=== PATIENT | female | born 1985 | race Caucasian/White ===

== ENCOUNTER → 2017-06-24 09:37 | Outpatient (CLI) | payer MEDICAID, SELFPAY ==
[2017-06-24 12:32] LABS: Absolute Lymphocyte Count 1.23 X10^3/ul (0.83-4.51); Absolute Neutrophil Count 4.6 X10^3/uL (2.0-7.7); Basophil# 0.05 X10^3/uL; Basophil% 0.7 % (0-1); Eosinophil# 0.08 X10^3/uL; Eosinophils% 1.2 % (0-5); Hematocrit 44.1 % (37-47); Hemoglobin 14.7 g/dl (12.0-15.0); Lymphocyte # 1.23 X10^3/ul (4.0); Lymphocyte % 18.3 % (19-41); Mean Corp Hgb Conc 33.3 g/gl (32-36); Mean Corpuscular Hgb 30.4 pg (27.0-32.0); Mean Corpuscular Volume 91.3 fL (81-99); Mean Platelet Vol. 10.1 fl (6.2-12.0); Monocyte# 0.72 X10^3/uL; Monocyte% 10.7 % (0-10); Neutrophil # 4.63 X10^3/uL (2.7-7.7); Platelet Count 331 K/mm3 (150-450); RBC Distribution Width CV 13.1 % (11.6-14.6); RBC Distribution Width SD 43.5 fl (35.1-43.9); Red Blood Count 4.83 M/mm3 (4.2-5.4); White Blood Count 6.7 K/mm3 (4.4-11.0)
[2017-06-24 12:36] LABS: POSITIVE COUNT NO; POSITIVE DIFFERENTIAL NO; POSITIVE MORPHOLOGY NO
[2017-06-24 12:39] LABS: Hemoglobin A1c 5.3 % (4.2-6.3)
[2017-06-24 12:44] LABS: Anion Gap 8 (5-15); BUN 19 mg/dL (7-18); BUN/Creat Ratio 27.4 RATIO (10-20); Calcium,Total 8.7 mg/dL (8.5-10.1); Chloride 105 mmol/L (98-107); Cholesterol 132 mg/dL (200); Creatinine, Serum 0.69 mg/dL (0.55-1.02); EST Glomerular Filtration Rate 106 mL/min (>60); Est Glom Filt Rate - Afr Amer 128 mL/min (>60); Glucose 86 mg/dL (70-110); High Density Lipoprotein 42 mg/dL; Potassium 3.7 mmol/L (3.5-5.1); Sodium Level 141 mmol/L (136-145); T4 Free Direct 0.93 ng/dL (0.76-1.46); Thyroid Stim Hormone (TSH) 1.08 uIU/mL (0.358-3.74); Triglycerides 149 mg/dL; Very Low Density Lipoprotein 30 mg/dL (5-40)
== END ==
PROVIDERS: Family Provider Internal Medicine; PCP Internal Medicine; Visit Provider Nurse Practitioner Family
DX: Z13.0 Encounter for screening for diseases of the blood and blood-forming organs and certain disorders involving the immune mechanism (principal); Z13.1 Encounter for screening for diabetes mellitus; E78.5 Hyperlipidemia, unspecified
CPT/HCPCS: 36415; 80048; 80061; 83036; 84439; 84443; 85025

== ENCOUNTER → 2017-12-22 08:02 | Outpatient (CLI) | payer MEDICARE, MEDICAID, SELFPAY ==
[2017-12-22 10:48] LABS: AST(SGOT) 16 U/L (15-37); Alanine Aminotransfer ALT/SGPT 41 U/L (13-56); Alkaline Phosphatase 74 U/L (45-117); Bilirubin, Direct 0.13 mg/dL (0.00-0.30); Cholesterol 120 mg/dL (200); High Density Lipoprotein 45 mg/dL; Triglycerides 141 mg/dL; Very Low Density Lipoprotein 28 mg/dL (5-40)
== END ==
PROVIDERS: Family Provider Internal Medicine; PCP Internal Medicine; Visit Provider Nurse Practitioner Family
DX: E78.5 Hyperlipidemia, unspecified (principal)
CPT/HCPCS: 36415; 80061; 80076

== ENCOUNTER → 2018-09-12 14:12 | Outpatient (CLI) | payer MEDICARE, MEDICAID, SELFPAY ==
[2018-09-12 14:12] VITALS: BMI 30.7
[2018-09-12 15:32] LABS: Hemoglobin A1c 5.4 % (4.2-6.3)
[2018-09-12 16:18] LABS: Cholesterol 148 mg/dL (200); Glucose 95 mg/dL (74-106); High Density Lipoprotein 40 mg/dL; Thyroid Stim Hormone (TSH) 1.38 uIU/mL (0.358-3.74); Triglycerides 298 mg/dL; Very Low Density Lipoprotein 60 mg/dL (5-40)
== END ==
PROVIDERS: Family Provider Internal Medicine; PCP Internal Medicine; Referring Provider Psychiatry & Neurology Psychiatry; Visit Provider Psychiatry & Neurology Psychiatry
DX: Z51.81 Encounter for therapeutic drug level monitoring (principal); Z79.899 Other long term (current) drug therapy
CPT/HCPCS: 36415; 80061; 82947; 83036; 84443

== ENCOUNTER → 2018-12-22 08:19 | Outpatient (CLI) | payer MEDICARE, MEDICAID, SELFPAY ==
[2018-09-12 14:12] VITALS: BMI 30.7
[2018-12-22 10:12] LABS: Absolute Lymphocyte Count 1.65 X10^3/uL (0.83-4.51); Absolute Neutrophil Count 4.7 X10^3/uL (2.0-7.7); Basophil# 0.04 X10^3/uL; Basophil% 0.6 % (0-1); Eosinophil# 0.11 X10^3/uL; Eosinophils% 1.5 % (0-5); Hematocrit 45.5 % (37-47); Hemoglobin 14.8 g/dL (12.0-15.0); Lymphocyte # 1.65 X10^3/ul (4.0); Lymphocyte % 22.9 % (19-41); Mean Corp Hgb Conc 32.5 g/dL (32-36); Mean Corpuscular Hgb 30.5 pg (27.0-32.0); Mean Corpuscular Volume 93.8 fL (81-99); Mean Platelet Vol. 9.6 fl (6.2-12.0); Monocyte# 0.65 X10^3/uL; NRBC Flagged by Analyzer 0 % (0-5); Neutrophil # 4.72 X10^3/uL (2.7-7.7); Neutrophil % 65.7 % (47-70); Platelet Count 305 K/mm3 (150-450); RBC Distribution Width CV 12.6 % (11.6-14.6); RBC Distribution Width SD 43.6 fl (35.1-43.9); Red Blood Count 4.85 M/mm3 (4.2-5.4); White Blood Count 7.2 K/mm3 (4.4-11.0)
[2018-12-22 10:32] LABS: ALB/GLOB Ratio 1.2 RATIO (0.9-2.4); AST(SGOT) 11 U/L (15-37); Alanine Aminotransfer ALT/SGPT 34 U/L (13-56); Albumin, Serum 3.6 g/dL (3.2-5.0); Alkaline Phosphatase 63 U/L (45-117); Anion Gap 8 (5-15); BUN 15 mg/dL (7-18); BUN/Creat Ratio 18.8 RATIO (10-20); Calcium,Total 8.9 mg/dL (8.5-10.1); Chloride 110 mmol/L (98-107); Cholesterol 134 mg/dL (200); EST Glomerular Filtration Rate 89 mL/min (>60); Est Glom Filt Rate - Afr Amer 108 mL/min (>60); Glucose 95 mg/dL (74-106); High Density Lipoprotein 49 mg/dL; Potassium 4.4 mmol/L (3.5-5.1); Protein, Total 6.6 g/dL (6.4-8.2); Sodium Level 145 mmol/L (136-145); T4 Free Direct 0.82 ng/dL (0.76-1.46); Thyroid Stim Hormone (TSH) 1.94 uIU/mL (0.358-3.74); Triglycerides 101 mg/dL; Very Low Density Lipoprotein 20 mg/dL (5-40)
== END ==
PROVIDERS: Family Provider Internal Medicine; PCP Internal Medicine; Referring Provider Internal Medicine; Visit Provider Internal Medicine
DX: E78.5 Hyperlipidemia, unspecified (principal); N93.8 Other specified abnormal uterine and vaginal bleeding
CPT/HCPCS: 36415; 80053; 80061; 84439; 84443; 85025

== ENCOUNTER → 2019-12-24 15:05 | Outpatient (CLI) | payer MEDICARE, MEDICAID, SELFPAY ==
[2019-12-24 12:33] VITALS: BMI 30.7
[2019-12-24 16:12] LABS: Bacteria 0 SEEN /hpf (None Seen); Mucous, Urine 0 SEEN /hpf (<or=2+); Red Blood Cells-Urine 0 SEEN /hpf (0-5); Squamous Epithelial Cells - UA 0 SEEN /hpf (5-10); White Blood Cells 0 SEEN /hpf (0-5)
[2019-12-24 16:26] LABS: Color, Urine Straw (Yellow); Glucose, Dipstick Normal (Normal); Ketone-Dipstick Negative (Negative); Leukocyte Esterase-Dipstick Negative /ul (Negative); Nitrite-Dipstick Negative (Negative); Occult Blood-Urine Negative /ul (Negative); Protein-Dipstick Negative (Negative); Specific Gravity, Urine 1.005 (1.002-1.030); Urine Bilirubin Dipstick Negative (Negative); Urine Clarity Clear (Clear); Urine Urobilinogen Normal (Normal)
== END ==
PROVIDERS: PCP Internal Medicine; Referring Provider Physician Assistant Surgical; Visit Provider Physician Assistant Surgical
DX: R10.9 Unspecified abdominal pain (principal)
CPT/HCPCS: 81001; 87086; 87088

== ENCOUNTER → 2020-01-18 10:08 | Outpatient (CLI) | payer MEDICARE, MEDICAID, SELFPAY ==
[2020-01-18 09:31] VITALS: BMI 30.7
[2020-01-18 12:16] LABS: Absolute Lymphocyte Count 1.48 X10^3/uL (0.83-4.51); Absolute Neutrophil Count 4.7 X10^3/uL (2.0-7.7); Basophil# 0.04 X10^3/uL; Basophil% 0.6 % (0-1); Eosinophil# 0.14 X10^3/uL; Eosinophils% 2.1 % (0-5); Hematocrit 44.2 % (37-47); Hemoglobin 14.8 g/dL (12.0-15.0); Lymphocyte # 1.48 X10^3/ul (4.0); Lymphocyte % 21.9 % (19-41); Mean Corp Hgb Conc 33.5 g/dL (32-36); Mean Corpuscular Volume 92.5 fL (81-99); Monocyte# 0.42 X10^3/uL; Monocyte% 6.2 % (0-10); NRBC Flagged by Analyzer 0 % (0-5); Neutrophil # 4.67 X10^3/uL (2.7-7.7); Neutrophil % 68.9 % (47-70); Platelet Count 292 K/mm3 (150-450); RBC Distribution Width CV 12.2 % (11.6-14.6); RBC Distribution Width SD 41.5 fl (35.1-43.9); Red Blood Count 4.78 M/mm3 (4.2-5.4); White Blood Count 6.8 K/mm3 (4.4-11.0)
[2020-01-18 12:50] LABS: ALB/GLOB Ratio 1.3 RATIO (0.9-2.4); AST(SGOT) 13 U/L (15-37); Alanine Aminotransfer ALT/SGPT 27 U/L (13-56); Alkaline Phosphatase 72 U/L (45-117); Anion Gap 2 (5-15); BUN 15 mg/dL (7-18); BUN/Creat Ratio 18.1 RATIO (10-20); Calcium,Total 8.9 mg/dL (8.5-10.1); Chloride 108 mmol/L (98-107); Cholesterol 145 mg/dL (200); Creatinine, Serum 0.83 mg/dL (0.55-1.02); EST Glomerular Filtration Rate 85 mL/min (>60); Est Glom Filt Rate - Afr Amer 102 mL/min (>60); Glucose 130 mg/dL (74-106); High Density Lipoprotein 40 mg/dL; Potassium 4.1 mmol/L (3.5-5.1); Sodium Level 138 mmol/L (136-145); Triglycerides 179 mg/dL; Very Low Density Lipoprotein 36 mg/dL (5-40)
[2020-01-18 13:49] LABS: Hemoglobin A1c 5.4 % (3.8-5.6)
== END ==
PROVIDERS: PCP Internal Medicine; Referring Provider Internal Medicine; Visit Provider Internal Medicine
DX: E78.5 Hyperlipidemia, unspecified (principal); F25.9 Schizoaffective disorder, unspecified; R73.9 Hyperglycemia, unspecified
CPT/HCPCS: 36415; 80053; 80061; 83036; 85025

== ENCOUNTER → 2021-01-12 11:16 | Outpatient (CLI) | payer MEDICARE, MEDICAID, SELFPAY ==
[2021-01-12 10:31] VITALS: BMI 30.7
[2021-01-12 12:01] LABS: Absolute Lymphocyte Count 1.48 X10^3/uL (0.83-4.51); Absolute Neutrophil Count 4.2 X10^3/uL (2.0-7.7); Basophil# 0.04 X10^3/uL; Basophil% 0.6 % (0-1); Eosinophil# 0.13 X10^3/uL; Eosinophils% 2.1 % (0-5); Hematocrit 45.6 % (37-47); Hemoglobin 14.8 g/dL (12.0-15.0); Lymphocyte # 1.48 X10^3/ul (0.83-4.51); Lymphocyte % 23.4 % (19-41); Mean Corp Hgb Conc 32.5 g/dL (32-36); Mean Corpuscular Hgb 30.5 pg (27.0-32.0); Mean Corpuscular Volume 93.8 fL (81-99); Mean Platelet Vol. 9.4 fl (6.2-12.0); Monocyte# 0.45 X10^3/uL; Monocyte% 7.1 % (0-10); NRBC Flagged by Analyzer 0 % (0-5); Neutrophil # 4.21 X10^3/uL (2.7-7.7); Neutrophil % 66.5 % (47-70); Platelet Count 366 K/mm3 (150-450); RBC Distribution Width CV 12.2 % (11.6-14.6); RBC Distribution Width SD 42.5 fl (35.1-43.9); Red Blood Count 4.86 M/mm3 (4.2-5.4); White Blood Count 6.3 K/mm3 (4.4-11.0)
[2021-01-12 12:45] LABS: ALB/GLOB Ratio 1.2 RATIO (0.9-2.4); AST(SGOT) 11 U/L (15-37); Alanine Aminotransfer ALT/SGPT 34 U/L (13-56); Albumin, Serum 3.7 g/dL (3.2-5.0); Alkaline Phosphatase 69 U/L (45-117); Anion Gap 4 (5-15); BUN 16 mg/dL (7-18); BUN/Creat Ratio 20.3 RATIO (10-20); Calcium,Total 9.5 mg/dL (8.5-10.1); Chloride 107 mmol/L (98-107); Cholesterol 161 mg/dL (200); Creatinine, Serum 0.79 mg/dL (0.55-1.02); EST Glomerular Filtration Rate 89 mL/min (>60); Est Glom Filt Rate - Afr Amer 107 mL/min (>60); Globulin 3.2 g/dL (2.2-4.2); Glucose 114 mg/dL (74-106); High Density Lipoprotein 47 mg/dL; Potassium 3.9 mmol/L (3.5-5.1); Protein, Total 6.9 g/dL (6.4-8.2); Sodium Level 142 mmol/L (136-145); Triglycerides 201 mg/dL; Very Low Density Lipoprotein 40 mg/dL (5-40)
== END ==
PROVIDERS: PCP Internal Medicine; Referring Provider Physician Assistant; Visit Provider Physician Assistant
DX: Z00.00 Encounter for general adult medical examination without abnormal findings (principal); E78.5 Hyperlipidemia, unspecified; F25.9 Schizoaffective disorder, unspecified
CPT/HCPCS: 36415; 80053; 80061; 85025

== ENCOUNTER → 2021-02-23 13:56 | Outpatient (CLI) | payer MEDICARE, MEDICAID, SELFPAY ==
[2021-02-23 15:19] LABS: ALB/GLOB Ratio 1.1 RATIO (0.9-2.4); AST(SGOT) 19 U/L (15-37); Alanine Aminotransfer ALT/SGPT 42 U/L (13-56); Albumin, Serum 3.8 g/dL (3.2-5.0); Alkaline Phosphatase 80 U/L (45-117); Anion Gap 8 (5-15); BUN 18 mg/dL (7-18); BUN/Creat Ratio 19.1 RATIO (10-20); Calcium,Total 8.8 mg/dL (8.5-10.1); Chloride 104 mmol/L (98-107); Creatinine, Serum 0.94 mg/dL (0.55-1.02); EST Glomerular Filtration Rate 72 mL/min (>60); Est Glom Filt Rate - Afr Amer 87 mL/min (>60); Globulin 3.5 g/dL (2.2-4.2); Glucose 103 mg/dL (74-106); Potassium 3.7 mmol/L (3.5-5.1); Protein, Total 7.3 g/dL (6.4-8.2); Sodium Level 141 mmol/L (136-145)
== END ==
PROVIDERS: PCP Internal Medicine; Visit Provider Physician Assistant
DX: I10 Essential (primary) hypertension (principal)
CPT/HCPCS: 36415; 80053

== ENCOUNTER → 2021-04-17 09:49 | Outpatient (CLI) | payer MEDICARE, MEDICAID, SELFPAY ==
[2021-04-17 12:57] LABS: Hemoglobin A1c 5.3 % (3.8-5.6)
[2021-04-17 13:15] LABS: Cholesterol 155 mg/dL (200); Glucose 122 mg/dL (74-106); High Density Lipoprotein 42 mg/dL; Triglycerides 149 mg/dL; Very Low Density Lipoprotein 30 mg/dL (5-40)
== END ==
LOC: MTLAB 08:51 → BIMLAB 09:49
PROVIDERS: PCP Internal Medicine; Referring Provider Psychiatry & Neurology Psychiatry; Visit Provider Psychiatry & Neurology Psychiatry
DX: E88.81 Metabolic syndrome and other insulin resistance (principal); Z79.899 Other long term (current) drug therapy
CPT/HCPCS: 36415; 80061; 82947; 83036

== ENCOUNTER 2021-07-17 08:35 | Outpatient (CLI) | payer MEDICARE, MEDICAID, SELFPAY | END 2021-07-17 23:59 | disposition home or self-care (01) | LOC: BIMLAB 08:38 | PROVIDERS: PCP Internal Medicine; Referring Provider Nurse Practitioner Family; Visit Provider Nurse Practitioner Family | DX: R10.31 Right lower quadrant pain (principal); R39.15 Urgency of urination | CPT/HCPCS: 87086; 87088 ==

== ENCOUNTER → 2022-05-20 | Outpatient (CLI) | payer MEDICARE, MEDICAID, SELFPAY ==
[2022-05-20 12:18] LABS: Hematocrit 43.8 % (37-47); Hemoglobin 14.7 g/dL (12.0-15.0); Mean Corp Hgb Conc 33.6 g/dL (32-36); Mean Corpuscular Volume 92.4 fL (81-99); Mean Platelet Vol. 9.7 fl (6.2-12.0); Platelet Count 340 K/mm3 (150-450); RBC Distribution Width SD 41.2 fl (35.1-43.9); Red Blood Count 4.74 M/mm3 (4.2-5.4); White Blood Count 8.5 K/mm3 (4.4-11.0)
[2022-05-20 12:34] LABS: Valproic Acid (Depakene) Level 44 ug/mL (50-100)
[2022-05-20 12:36] LABS: AST(SGOT) 10 U/L (15-37); Alanine Aminotransfer ALT/SGPT 35 U/L (13-56); Albumin, Serum 3.7 g/dL (3.2-5.0); Alkaline Phosphatase 69 U/L (45-117); Bilirubin, Direct 0.14 mg/dL (0.00-0.30); Protein, Total 6.7 g/dL (6.4-8.2)
== END | disposition home or self-care (01) ==
LOC: BIMLAB 08:25
PROVIDERS: PCP Internal Medicine; Referring Provider Psychiatry & Neurology Psychiatry; Visit Provider Psychiatry & Neurology Psychiatry
DX: Z51.81 Encounter for therapeutic drug level monitoring (principal); Z79.899 Other long term (current) drug therapy
CPT/HCPCS: 36415; 80076; 80164; 85027

== ENCOUNTER → 2022-07-02 | Outpatient (CLI) | payer MEDICARE, MEDICAID, SELFPAY ==
[2022-07-02 12:04] LABS: Hematocrit 45.8 % (37-47); Hemoglobin 14.7 g/dL (12.0-15.0); Mean Corp Hgb Conc 32.1 g/dL (32-36); Mean Corpuscular Hgb 30.3 pg (27.0-32.0); Mean Corpuscular Volume 94.4 fL (81-99); Mean Platelet Vol. 10.4 fl (6.2-12.0); Platelet Count 254 K/mm3 (150-450); RBC Distribution Width SD 42.1 fl (35.1-43.9); Red Blood Count 4.85 M/mm3 (4.2-5.4); White Blood Count 6.9 K/mm3 (4.4-11.0)
[2022-07-02 12:22] LABS: Valproic Acid (Depakene) Level 70 ug/mL (50-100)
[2022-07-02 12:23] LABS: AST(SGOT) 12 U/L (15-37); Alanine Aminotransfer ALT/SGPT 41 U/L (13-56); Albumin, Serum 3.4 g/dL (3.2-5.0); Alkaline Phosphatase 51 U/L (45-117); Bilirubin, Direct 0.08 mg/dL (0.00-0.30); Cholesterol 168 mg/dL (200); Glucose 101 mg/dL (74-106); High Density Lipoprotein 46 mg/dL; Protein, Total 6.4 g/dL (6.4-8.2); Triglycerides 181 mg/dL; Very Low Density Lipoprotein 36 mg/dL (5-40)
== END | disposition home or self-care (01) ==
LOC: BIMLAB 09:19
PROVIDERS: PCP Internal Medicine; Referring Provider Psychiatry & Neurology Psychiatry; Visit Provider Psychiatry & Neurology Psychiatry
DX: Z79.899 Other long term (current) drug therapy (principal); E88.81 Metabolic syndrome and other insulin resistance
CPT/HCPCS: 36415; 80061; 80076; 80164; 82947; 85027

== ENCOUNTER → 2022-07-29 | Outpatient (CLI) | payer MEDICARE, MEDICAID, SELFPAY ==
[2022-07-29 17:16] LABS: Anion Gap 4 (5-15); BUN 18 mg/dL (7-18); BUN/Creat Ratio 22.7 RATIO (10-20); Calcium,Total 9.5 mg/dL (8.5-10.1); Chloride 108 mmol/L (98-107); Creatinine, Serum 0.79 mg/dL (0.55-1.02); EST Glomerular Filtration Rate 88 mL/min (>60); Est Glom Filt Rate - Afr Amer 106 mL/min (>60); Glucose 125 mg/dL (74-106); Potassium 4.2 mmol/L (3.5-5.1); Sodium Level 143 mmol/L (136-145)
== END | disposition home or self-care (01) ==
LOC: BIMLAB 14:36
PROVIDERS: PCP Internal Medicine; Referring Provider Internal Medicine; Visit Provider Internal Medicine
DX: I10 Essential (primary) hypertension (principal)
CPT/HCPCS: 36415; 80048

== ENCOUNTER 2022-12-28 08:46 | Outpatient (CLI) | payer MEDICARE, MEDICAID, SELFPAY ==
[2022-12-28 12:27] LABS: Vitamin B12 832 pg/mL (211-911); Vitamin D,25 Hydroxy 34.1 ng/mL
[2022-12-28 12:28] LABS: Hemoglobin A1c 5.5 % (3.8-5.6)
[2022-12-28 12:31] LABS: Valproic Acid (Depakene) Level 68 ug/mL (50-100)
[2022-12-28 13:14] LABS: ALB/GLOB Ratio 1.1 RATIO (0.9-2.4); AST(SGOT) 26 U/L (15-37); Alanine Aminotransfer ALT/SGPT 63 U/L (13-56); Albumin, Serum 3.4 g/dL (3.2-5.0); Alkaline Phosphatase 60 U/L (45-117); Anion Gap 5 (5-15); BUN 21 mg/dL (7-18); BUN/Creat Ratio 24.6 RATIO (10-20); Calcium,Total 8.9 mg/dL (8.5-10.1); Chloride 109 mmol/L (98-107); Cholesterol 182 mg/dL (200); Creatinine, Serum 0.86 mg/dL (0.55-1.02); EST Glomerular Filtration Rate 80 mL/min (>60); Est Glom Filt Rate - Afr Amer 97 mL/min (>60); Ferritin 87 ng/mL (8-252); Globulin 3.2 g/dL (2.2-4.2); Glucose 93 mg/dL (74-106); High Density Lipoprotein 43 mg/dL; Iron 108 ug/dL (50-170); Iron Binding Capacity,Total 343 ug/dL (250-450); PERCENT IRON SATURATION 31.5 % (15.0-55.0); Protein, Total 6.6 g/dL (6.4-8.2); Sodium Level 141 mmol/L (136-145); Thyroid Stim Hormone (TSH) 2.64 uIU/mL (0.358-3.74); Triglycerides 281 mg/dL; Very Low Density Lipoprotein 56 mg/dL (5-40)
[2023-01-01 10:08] LABS: Testosterone, % Free 3.46 % (0.50-2.80); Testosterone, Free 1.38 ng/dL (0.10-0.85); Testosterone, Total 40 ng/dL (8-60)
== END 2022-12-28 23:59 | disposition home or self-care (01) ==
LOC: BIMLAB 08:48
PROVIDERS: PCP Internal Medicine
DX: R53.83 Other fatigue (principal); Z79.899 Other long term (current) drug therapy; D50.9 Iron deficiency anemia, unspecified; E55.9 Vitamin D deficiency, unspecified
CPT/HCPCS: 36415; 80053; 80061; 80164; 82306; 82607; 82728; 82746; 83036; 83540; 83550; 84402; 84403; 84443

== ENCOUNTER → 2023-01-21 | Outpatient (CLI) | payer MEDICARE, MEDICAID, SELFPAY | END | disposition home or self-care (01) | LOC: PSN 11:46 | PROVIDERS: PCP Internal Medicine | DX: Z79.899 Other long term (current) drug therapy (principal); R53.83 Other fatigue | CPT/HCPCS: 93005 ==

== ENCOUNTER → 2023-08-04 | Outpatient (CLI) | payer MEDICARE, MEDICAID, SELFPAY ==
[2023-08-04 16:47] LABS: Absolute Lymphocyte Count 2.35 X10^3/uL (0.83-4.51); Absolute Neutrophil Count 3.7 X10^3/uL (2.0-7.7); Basophil# 0.06 X10^3/uL; Basophil% 0.8 % (0-1); Eosinophil# 0.18 X10^3/uL; Eosinophils% 2.5 % (0-5); Hematocrit 44.9 % (37-47); Hemoglobin 14.8 g/dL (12.0-15.0); Lymphocyte # 2.35 X10^3/ul (0.83-4.51); Mean Corpuscular Hgb 30.4 pg (27.0-32.0); Mean Corpuscular Volume 92.2 fL (81-99); Monocyte# 0.84 X10^3/uL; Monocyte% 11.8 % (0-10); NRBC Flagged by Analyzer 0 % (0-5); Neutrophil # 3.68 X10^3/uL (2.7-7.7); Neutrophil % 51.8 % (47-70); Platelet Count 301 K/mm3 (150-450); RBC Distribution Width CV 11.9 % (11.6-14.6); RBC Distribution Width SD 39.8 fl (35.1-43.9); Red Blood Count 4.87 M/mm3 (4.2-5.4); White Blood Count 7.1 K/mm3 (4.4-11.0)
[2023-08-04 16:50] LABS: ALB/GLOB Ratio 1.3 RATIO (0.9-2.4); AST(SGOT) 21 U/L (15-37); Alanine Aminotransfer ALT/SGPT 58 U/L (13-56); Albumin, Serum 3.8 g/dL (3.2-5.0); Alkaline Phosphatase 59 U/L (45-117); Anion Gap 7 (5-15); BUN 17 mg/dL (7-18); Chloride 106 mmol/L (98-107); Cholesterol 206 mg/dL (200); Creatinine, Serum 0.81 mg/dL (0.55-1.02); EST Glomerular Filtration Rate 85 mL/min (>60); Est Glom Filt Rate - Afr Amer 103 mL/min (>60); Globulin 2.9 g/dL (2.2-4.2); Glucose 117 mg/dL (74-106); High Density Lipoprotein 36 mg/dL; Potassium 3.6 mmol/L (3.5-5.1); Protein, Total 6.7 g/dL (6.4-8.2); Sodium Level 142 mmol/L (136-145); Triglycerides 367 mg/dL; Very Low Density Lipoprotein 73 mg/dL (5-40)
[2023-08-04 16:54] LABS: Hemoglobin A1c 5.5 % (3.8-5.6)
== END | disposition home or self-care (01) ==
LOC: BIMLAB 15:26
PROVIDERS: PCP Internal Medicine; Visit Provider Internal Medicine
DX: R73.03 Prediabetes (principal); I10 Essential (primary) hypertension; E78.5 Hyperlipidemia, unspecified
CPT/HCPCS: 36415; 80053; 80061; 83036; 85025

== ENCOUNTER → 2024-01-13 | Outpatient (CLI) | payer MEDICARE, MEDICAID, SELFPAY ==
[2024-01-13 10:17] LABS: Hematocrit 46.1 % (37-47); Hemoglobin 15.3 g/dL (12.0-15.0); Mean Corp Hgb Conc 33.2 g/dL (32-36); Mean Corpuscular Hgb 30.3 pg (27.0-32.0); Mean Corpuscular Volume 91.3 fL (81-99); Mean Platelet Vol. 9.6 fl (6.2-12.0); Platelet Count 337 K/mm3 (150-450); Red Blood Count 5.05 M/mm3 (4.2-5.4); White Blood Count 6.6 K/mm3 (4.4-11.0)
[2024-01-13 10:41] LABS: Hemoglobin A1c 5.5 % (3.8-5.6)
[2024-01-13 10:45] LABS: ALB/GLOB Ratio 1.2 RATIO (0.9-2.4); AST(SGOT) 17 U/L (15-37); Alanine Aminotransfer ALT/SGPT 57 U/L (13-56); Albumin, Serum 3.8 g/dL (3.2-5.0); Alkaline Phosphatase 77 U/L (45-117); Anion Gap 7 (5-15); BUN 14 mg/dL (7-18); BUN/Creat Ratio 16.9 RATIO (10-20); Chloride 108 mmol/L (98-107); Cholesterol 173 mg/dL (200); Creatinine, Serum 0.83 mg/dL (0.55-1.02); EST Glomerular Filtration Rate 83 mL/min (>60); Est Glom Filt Rate - Afr Amer 100 mL/min (>60); Ferritin 90 ng/mL (8-252); Globulin 3.1 g/dL (2.2-4.2); Glucose 104 mg/dL (74-106); High Density Lipoprotein 40 mg/dL; Iron 86 ug/dL (50-170); Iron Binding Capacity,Total 375 ug/dL (250-450); PERCENT IRON SATURATION 22.9 % (15.0-55.0); Potassium 3.8 mmol/L (3.5-5.1); Protein, Total 6.9 g/dL (6.4-8.2); Sodium Level 140 mmol/L (136-145); Triglycerides 271 mg/dL; Very Low Density Lipoprotein 54 mg/dL (5-40); Vitamin B12 956 pg/mL (211-911); Vitamin D,25 Hydroxy 33.3 ng/mL
[2024-01-13 11:09] LABS: Valproic Acid (Depakene) Level 27 ug/mL (50-100)
[2024-01-18 12:09] LABS: Testosterone, % Free 3.74 % (0.50-2.80); Testosterone, Free 1.65 ng/dL (0.10-0.85); Testosterone, Total 44 ng/dL (8-60)
== END | disposition home or self-care (01) ==
LOC: LAB 09:40
PROVIDERS: PCP Internal Medicine; Referring Provider Physician Assistant; Visit Provider Physician Assistant
DX: R63.5 Abnormal weight gain (principal); R63.2 Polyphagia; Z79.899 Other long term (current) drug therapy
CPT/HCPCS: 80053; 80061; 80164; 82306; 82607; 82728; 83036; 83540; 83550; 84402; 84403; 85027

== ENCOUNTER → 2024-07-27 | Outpatient (CLI) | payer MEDICARE, MEDICAID, SELFPAY ==
[2024-07-27 12:45] LABS: AST(SGOT) 32 U/L (<=31); Alanine Aminotransfer ALT/SGPT 58 U/L (<=34); Albumin, Serum 4.6 g/dL (3.5-5.0); Alkaline Phosphatase 74 U/L (35-104); Anion Gap 13 (5-15); BUN 14 mg/dL (4-19); BUN/Creat Ratio 16.1 RATIO (10-20); Calcium 9.6 mg/dL (7.6-11.0); Carbon Dioxide 24.4 mmol/L (22.0-29.0); Chloride 101 mmol/L (96-108); Cholesterol 179 mg/dL (<=200); Creatinine, Serum 0.88 mg/dL (0.70-1.20); EST Glomerular Filtration Rate 87 (>60); Globulin 2.3 g/dL (2.2-4.2); Glucose 104 mg/dL (70-99); High Density Lipoprotein 43 mg/dL; Low Density Lipoprotein Calc. 98 mg/dL; Potassium 3.8 mmol/L (3.3-5.1); Protein, Total 6.9 g/dL (5.9-8.4); Sodium Level 138 mmol/L (133-145); Total Bilirubin 0.39 mg/dL (0.00-1.30); Triglycerides 189 mg/dL; Very Low Density Lipoprotein 38 mg/dL (5-40); cholesterol:hdl ratio screen 4.14
== END | disposition home or self-care (01) ==
LOC: BIMLAB 08:27
PROVIDERS: PCP Internal Medicine; Referring Provider Internal Medicine; Visit Provider Internal Medicine
DX: R73.02 Impaired glucose tolerance (oral) (principal); E78.5 Hyperlipidemia, unspecified
CPT/HCPCS: 36415; 80053; 80061; 83036

== ENCOUNTER → 2025-01-30 | Outpatient (CLI) | payer MEDICARE, MEDICAID, SELFPAY ==
[2025-01-30 10:09] LABS: Hematocrit 42.9 % (37-47); Hemoglobin 14.6 g/dL (12.0-15.0); Immature Granulocytes Count 0.020 X10^3/uL (0.0-0.0); Mean Corp Hgb Conc 34.0 g/dL (32-36); Mean Corpuscular Volume 87.6 fL (81-99); Mean Platelet Vol. 9.4 fl (6.2-12.0); NRBC Flagged by Analyzer 0 % (0-5); Platelet Count 334 K/mm3 (150-450); RBC Distribution Width CV 12.2 % (11.6-14.6); RBC Distribution Width SD 38.9 fl (35.1-43.9); Red Blood Count 4.90 M/mm3 (4.2-5.4); White Blood Count 6.2 K/mm3 (4.4-11.0)
[2025-01-30 13:21] LABS: AST(SGOT) 23 U/L (<=31); Alanine Aminotransfer ALT/SGPT 59 U/L (<=34); Albumin, Serum 4.3 g/dL (3.5-5.0); Alkaline Phosphatase 63 U/L (35-104); Anion Gap 12 (5-15); BUN 18 mg/dL (4-19); BUN/Creat Ratio 21.6 RATIO (10-20); Calcium,Total 9.5 mg/dL (7.6-11.0); Carbon Dioxide 24.5 mmol/L (21.0-32.0); Chloride 107 mmol/L (98-108); Cholesterol 160 mg/dL (<=200); Globulin 2.0 g/dL (2.2-4.2); Glucose 101 mg/dL (70-99); Low Density Lipoprotein Calc. 79 mg/dL; Potassium 3.8 mmol/L (3.3-5.1); Triglycerides 196 mg/dL; Very Low Density Lipoprotein 39 mg/dL (5-40); Vitamin B12 996 pg/mL (180-914); cholesterol:hdl ratio screen 3.86
--- OUTSIDE RECORDS SUMMARY | 2025-01-30 17:37 | XMS RPT_ITS | CCD ---
Author Organization [facility] Care Team Providers Care Manager Work Name Role Phone Luz Maria CHEN, Vani Miller Unavailable [phone] Suzy Koehler MD Unavailable [phone] Gali Varela Unavailable Unavailable Suzy Koehler MD Unavailable [phone] Suzy Koehler MD Primary Care Provider [phone] SUZY KOEHLERDICTA Primary Care Unav ailable CARLOTA MALDONADO Attending Unavailab Dr. Suzy Hamm Primary Care Provider [phone] Dr. Suzy Koehler Referring Provider [phone] MINE Crooks Attending Provider [phone] Dr. Suzy Koehler Attending Provider [phone] Suzy Koehler MD Primary Care Provider [phone] Suzy Koehler MD Primary Care Provider [phone] Dr. Suzy Koehler MD Primary Care Provider Dr. Suzy Koehler MD Attending Provider [phone] Dr. Suzy Koehler MD Referring Provider [phone] Suzy Koehler Primary Care Unavailable Suzy Koehler Attending Unavailable Suzy Koehler Referring Unavailable Suzy Koehler Primary Care Unavailable Suzy Koehler Attending Unavailable Suzy Koehler Referring Unavailable Suzy Koehler Primary Care Unavailable Briseyda Thomas Attending Unavailable Briseyda Thomas Referring Unavailable Oleghe, Efewongbe Primary Care Unavailable Oleeulogioe Efewongbe Attending Unavailable Oleghe, Efewongbe Referring Unavailable Oleghe, Efewongbe Primary Care Unavailable Awa Prince Attending Unavailable Oleghe, Efewongbe Referring Unavailable OLEGHE, EFEWONGBE B Primary Care Unavailable CHIARA TAMAYO Attending Unavailable Allergies Allergy Classification Reported Allergen(s) Allergy Type Date of Onset Reaction(s) Facility (6 sources) ciprofloxacin drug allergy 7 hives, rash [facility] Work Phone: (11 sources) Ciprofloxacin; Translations: [CIPROFLOXACIN] Drug Allergy 6 Rash, Hives [facility] (1 source) Ciprofloxacin Drug Allergy 5 [facility] Repository Medications Current Medications Medication Drug Class(es) Dates Sig (Normalized) Sig (Original) atorvastatin 40 mg oral tablet (20 sources) HMG-CoA Reductase Inhibitor Start: 12-20-2016 End: 07-23-2024 take 1 tablet by mouth once daily Atorvastatin 40 mg tablet Active 0 .ROUTE .COMPLEX July 23, 2024 1:49pm TAKE 1 TABLET BY MOUTH DAILY Comment on above: Take 1 tablet by jesús th once daily. Blood Pressure Monitor (Blood Pressure Kit) kit (5 sources) Start: 01-12-2021 Blood Pressure Monitor (Blood Pressure Kit) kit Active 0 .ROUTE .MEDSUPPLY January 12, 2021 12:00am As directed Start: 01-12-2021 Blood Pressure Monitor (Blood Pressure Kit) kit Active 0 .ROUTE .MEDSUPPLY January 11, 2021 11:00pm As directed fenofibrate 54 mg oral tablet (2 sources) Peroxisome Proliferator Receptor alpha Agonist Start: 02-06-2024 End: 07-23-2024 take 1 tablet by mouth once daily Fenofibrate 54 mg tablet Active 54 mg PO daily July 23, 2024 1:50pm hydroCHLOROthiazide 12.5 mg oral tablet (20 sources) Thiazide Diuretic Start: 08-04-2023 End: 08-04-2023 Hydrochlorothiazide 12.5 mg tablet Discontinued 12.5 mg .ROUTE .qd August 04, 2023 3:48pm August 04, 2023 5:41pm 12.5 mg QD; 1/2 tab qam Start: 01-27-2021 End: 02-13-2024 take 1 tablet by mouth once daily in the morning Hydrochlorothiazide 12.5 mg tablet Discontinued 0 .ROUTE .COMPLEX 90 July 28, 2023 3:15pm August 04, 2023 3:49pm TAKE 1 TABLET BY MOUTH EVERY MORNING for blood pressure Comment on above: every morning. lamoTRIgine 100 mg oral tablet (1 source) Mood Stabilizer, Anti-epileptic Agent Start: 08-07-19 25 take 1 tablet by mouth once daily Lamotrigine 100 mg tablet Active 100 mg PO daily August 06, 2024 12:00am lurasidone hydrochloride 120 mg oral tablet (16 sources) Atypical Antipsychotic Start: 07-01-19 take 1 tablet by mouth once daily Lurasidone (Latuda) 120 mg tablet Active 120 mg PO daily July 01, 2017 1:00am Start: 12-31-2016 LATUDA 120 MG TABS qd LURASIDONE HCL [id number] Emiliana Sewell Start: 07-29-2016 take 1 tablet by jesús th once daily lurasidone (LATUDA) 80 mg tablet Take 1 tablet by mouth once daily. 0 07/29/2016 Active Comment on above: Take 1 tablet by jesús th once daily. metFORMIN hydrochloride 500 mg oral tablet (8 sources) Biguanide Start: 02-02-2023 Metformin Active MG PO February 02, 2023 12:00am Start: 10-12-2022 End: 09-21-2024 Metformin 500 mg tablet Acti ve mg PO February 02, 2023 12:00am Comment on above: Take 1 tablet by jesús th twice daily with meals. Take 1 tablet by jesús th two times a day with meals. modafinil 200 mg oral tablet (18 sources) Sympathomimetic-like Agent Start: 02-02-2023 Modafinil 200 mg tablet Active mg PO February 02, 2023 12:00am Start: 02-02-2023 Modafinil Acti ve MG PO February 02, 2023 12:00am Start: 07-11-2012 End: 12-30-2017 take 1 tablet by mouth once daily Modafinil 200 mg tablet Discontinued 200 mg PO daily July 01, 2017 1:00am December 30, 2017 9:30am Comment on above: Take 1 tablet by jesús th once daily. MULTIVIT WITH CALCIUM,IRON,MIN (WOMEN'S MULTIPLE VITAMINS ORAL) (5 sources) MULTIVIT WITH CALCIUM,IRON,MIN (WOMEN'S MULTIPLE VITAMINS ORAL) Take by mouth once daily. Active MULTIVIT WITH CA LCIUM,IRON,MIN (WOMEN'S MULTIPLE VITAMINS ORAL) Take by mouth once daily. 0 Active Comment on above: Take by mouth once d aily. Multivitamin (Multiple Vitamins) tablet (2 sources) Start: 02-02-2023 Multivitamin (Multiple Vitamins) tablet Active 1 {tbl} PO DAILY February 02, 2023 12:00am Start: 02-02-2023 take 1 tablet by jesús th once daily Multivitamin (Multiple Vitamins) tablet Active 1 TABLET PO DAILY February 02, 2023 12:00am norethindrone 0.35 mg oral tablet (5 sources) Start: 04-14-2023 End: 06-24-2025 take 1 tablet by mouth once daily Norethindrone, Contraceptive, 0.35 mg tablet Indications: PCOS (polycystic ovarian syndrome) , Irregular menstrual cycle , Encounter for BCP ( control pills) initial prescription Take 1 tablet by mouth once daily. 84 tablet 4 04/30/2024 06/24/2025 Active Comment on above: Take 1 tablet by jesús once daily. Vitamin B Complex (4 sources) Start: 06-02-2019 take 1 capsule by mouth once daily Vitamin B Complex Active 1 CAP PO DAILY June 02, 2019 1:00am Start: 06-02-2019 take 1 capsule by mouth once d aily Vitamin B Complex Active 1 CAP PO DAILY June 02, 2019 12:00am vitamin b complex capsule (4 sources) take 1 capsule by mo [facility] once daily vitamin b complex capsule Take 1 capsule by mouth once daily. Active take 1 capsule by mouth once jose ly vitamin b complex capsule Take 1 capsule by mouth once daily. 0 Active Comment on above: Take 1 capsule by mo [facility] once daily. Vitamin B Complex capsule (1 source) Start: 06-02-2019 Vitamin B Complex capsule Active 1 NMA PO DAILY June 02, 2019 1:00am vitamin e 180 mg oral capsule (15 sources) Start: 07-01-2017 Vitamin E (Dl, Acetate) 400 unit capsule Active 400 U PO daily July 01, 2017 1:00am Start: 12-31-2016 VITAMIN E 400 UNIT CAPS qd VITAMIN E [id number] Emiliana Sewell take 1 capsule by mo ut once daily Vitamin E, dl, acetate, (VITAMIN E) 400 unit capsule Take 400 Units by mouth once daily. Active Comment on above: Take 400 Units by mo ut once daily. Completed/Discontinued Medications Medication Drug Class(es) Dates Sig (Normalized) Sig (Original) amoxicillin 875 mg oral tablet (5 sources) Penicillin-class Antibacterial Start: 06-02-2019 End: 12-24-2019 take 1 tablet by mouth twice daily Amoxicillin 875 mg tablet Discontinued 875 mg PO TWICE A DAY June 02, 2019 1:00am December 24, 2019 12:32pm ARIPiprazole 10 mg oral tablet (13 sources) Atypical Antipsychotic Start: 07-01-2017 End: 04-28-2023 take 1 tablet by mouth once Aripiprazole 10 mg tablet Discontinued 10 mg PO ONCE July 01, 2017 1:00am April 28, 2023 2:53pm Start: 12-31-2016 ARIPIPRAZOLE 1 0 MG TABS qd ARIPIPRAZOLE [id number] Emiliana Sewell End: 04-14-2023 ARIPiprazole (ABILIFY) 30 mg tablet Take 15 mg by mouth twice daily. 0 04/14/2023 Discontinued Comment on above: Take 15 mg by mouth twice daily. benzonatate 200 mg oral capsule (1 source) Non-narcotic Antitussive Start: 8 End: 3 take 1 capsule by mouth three times daily as needed Benzonatate 200 mg capsule Indications: URI with cough and congestion Take 1 capsule by mouth three times daily as needed. 30 capsule 0 01/31/2018 10/12/2022 Discontinued (Other) Comment on above: Take 1 capsule by mo ut three times daily as needed. citalopram 20 mg oral tablet (13 sources) Serotonin Reuptake Inhibitor Start: 0 End: 3 take 1 tablet by mouth once daily Citalopram 20 mg tablet Discontinued 20 mg PO daily July 01, 2017 1:00am April 28, 2023 2:53pm Comment on above: Take one(1) tablet d aily. pt takes at hs dexpanthenol / Niacinamide / Riboflavin / Thiamine / Vitamin B6 (6 sources) Start: 7 VITAMIN B-COMPLEX 100 INJ qd B COMPLEX VITAMINS [id number] Emiliana Sewell Start: 12-31-2016 VITAMIN B-COMP MICHAEL 100 INJ qd B COMPLEX VITAMINS [id number] Emiliana Sewell ibuprofen 600 mg oral tablet (5 sources) Nonsteroidal Anti-inflammatory Drug Start: 02-20-2019 End: 06-02-2019 take 1 tablet by mouth three times daily at mealtime for pain Ibuprofen 600 mg tablet Discontinued 600 mg PO THREE TIMES A DAY as needed for pain February 20, 2019 12:00am June 02, 2019 2:14pm take with food medroxyPROGESTERone acetate 10 mg oral tablet (4 sources) Progestin Start: 02-01-2017 End: 02-11-2017 MEDROXYPROGESTERONE ACETATE 10 MG TABS take one tablet daily x 10 days every 45-60 days if no spontaneous menses MEDROXYPROGESTERONE ACETATE [id number] Vani Loera MD nitrofurantoin, macrocrystals 25 mg / nitrofurantoin, monohydrate 75 mg oral capsule (5 sources) Nitrofuran Antibacterial Start: 07-17-2021 End: 07-22-2021 take 1 capsule by mouth every twelve hours at mealtime Nitrofurantoin Monohyd/M-Cryst (Macrobid) 100 mg capsule Discontinued 100 mg PO Q12H 10 5 July 17, 2021 1:00am July 21, 2021 1:00am July 22, 2021 1:04am must administer with a meal/food Drug Treatment Unknown - unknown (1 source) No information available. temazepam 15 mg oral capsule (2 sources) Benzodiazepine Start: 02-02-2023 End: 08-04-2023 Temazepam 15 mg capsule Discontinued mg PO February 02, 2023 12:00am August 04, 2023 3:48pm Start: 02-02-2023 End: 08-04-2023 Temazepam Discontinued MG PO February 02, 2023 12:00am August 04, 2023 3:48pm divalproex sodium 500 mg delayed release oral tablet (7 sources) Mood Stabilizer, Anti-epileptic Agent Start: 02-02-2023 Divalproex Active M G PO February 02, 2023 12:00am Start: 09-30-2022 End: 08-06-2024 Divalproex 500 mg tablet,del ayed release (DR/EC) Discontinued mg PO February 02, 2023 12:00am August 06, 2024 1:07pm Comment on above: Take 500 mg by mouth twice daily. Problems Active Problems Problem Classification Problem Date Documented Da te Episodic/Chronic Abdominal pain (5 sources) Right lower quadrant pain; Translations: [Right lower quadrant pain] 12-24-2019 Episodic Contraceptive and procreative management (2 sources) Patient encounter status; Translations: [Encounter for initial prescription of contraceptive pills] 04-14-2023 Episodic Diabetes mellitus without complication (6 sources) Impaired glucose tolerance; Translations: [Impaired glucose tolerance (oral)] Onset: 08-09-2024 08-04-2023 Episodic Disorders of lipid metabolism (19 sources) Hyperlipidemia; Translations: [Hyperlipidemia, unspecified] Onset: 05-14-2013 12-31-2016 Chronic Essential hypertension (7 sources) Hypertensive disorder; Translations: [Essential (primary) hypertension] Onset: 08-06-2024 07-29-2022 Chronic Genitourinary symptoms and ill-defined conditions (2 sources) Urgent desire to urinate; Translations: [Urgency of urination] 10-14-2023 Episodic Immunizations and screening for infectious disease (6 sources) Needs influenza immunization; Translations: [Encounter for immunization] 04-03-2021 Episodic Other endocrine disorders (4 sources) Polycystic ovaries; Translations: [Polycystic ovarian syndrome] Onset: 02-01-2017 02-01-2017 Chronic Other endocrine disorders (9 sources) Polycystic ovary syndrome; Translations: [Polycystic ovarian syndrome] Onset: 03-19-2013 Chronic Other female genital disorders (8 sources) Dysfunctional uterine bleeding; Translations: [Irregular periods] Onset: 12-31-2016 12-31-2016 Chronic Other female genital disorders (6 sources) Abnormal uterine bleeding; Translations: [Other specified abnormal uterine and vaginal bleeding] 01-05-2019 Chronic Other gastrointestinal disorders (2 sources) Incontinence of feces; Translations: [Full incontinence of feces] 02-02-2023 Episodic Other gastrointestinal disorders (1 source) Full incontinence of feces; Translations: [Full incontinence of feces] 08-04-2023 Episodic Other inflammatory condition of skin (1 source) Chafing of skin; Translations: [Erythema intertrigo] 10-14-2023 Episodic Other nutritional; endocrine; and metabolic disorders (6 sources) Body mass index (BMI) 30.0-30.9, adult; Translations: [Body mass index (BMI) 30.0-30.9, adult] Onset: 12-31-2016 12-31-2016 Chronic Other nutritional; endocrine; and metabolic disorders (1 source) Obesity; Translations: [Obesity, unspecified] Chronic Other nutritional; endocrine; and metabolic disorders (2 sources) Weight gain; Translations: [Abnormal weight gain] Episodic Other screening for suspected conditions (not mental disorders or infectious disease) (12 sources) Encounter for screening for diseases of the blood and blood-forming organs and certain disorders involving the immune mechanism; Translations: [Encounter for screening for diabetes mellitus] Onset: 12-31-2016 12-31-2016 Episodic Other upper respiratory infections (2 sources) Acute maxillary sinusitis, unspecified; Translations: [Postnasal drip] Onset: 09-15-2024 Episodic Schizophrenia and other psychotic disorders (17 sources) Schizoaffective disorder; Translations: [Schizoaffective disorder, unspecified] Onset: 12-02-2015 12-31-2016 Chronic Unclassified (4 sources) Screening for malignant neoplasm of cervix ; Translations: [Encounter for screening for malignant neoplasm of cervix] Onset: 02-01-2017 02-01-2017 Unclassified (4 sources) Gynecologic examination ; Translations: [Encounter for gynecological examination (general) (routine) with abnormal findings] Onset: 02-01-2017 02-01-2017 Unclassified (5 sources) Thyroid disorder screening ; Translations: [Encounter for screening for other suspected endocrine disorder] Onset: 12-31-2016 12-31-2016 Unclassified (1 source) No current problems or disability 12-30-2016 Unclassified (1 source) Procedure carried out on subject; Translations: [Encounter for screening for diseases of the blood and blood-forming organs and certain disorders involving the immune mechanism] Onset: 12-31-2016 12-31-2016 Unclassified (1 source) Acute cough; Translations: [Acute cough] Onset: 09-15-2024 Viral infection (2 sources) COVID-19; Translations: [COVID-19] Onset: 03-17-2023 Past or Other Problems Problem Classification Problem Date Documented Da te Episodic/Chronic Mood disorders (3 sources) Depressive disorder; Translations: [Other specified depressive episodes] Onset: 02-09-2008 Resolved: 12-02-2015 12-02-2015 Chronic Other nutritional; endocrine; and metabolic disorders (1 source) Abnormal weight gain; Translations: [Abnormal weight gain] Onset: 01-31-2024 Episodic Results Test Name Value Interpretation Reference Range [facility] ) STEPHEN BAUM ([id number]) 1985 F Date Time Provider Department 10/19/24 3:40 PM CHIARA TAMAYO OBGYWM During your visit today, we recorded the following information about you: Blood pressure Weight 126/88 93.4 kg Chiara Tamayo APRN.CN 10/19/2024 4:03 PM Signed 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 Still get period: No, norethindrone daily Sexually active: No HPV vaccine: No HPV:negative, 10/12/2022 Last pap smear: 10/12/2022, normal History of abnormal pap: No OB History Gravida0 Para0 Term0 Preterm0 AB0 Living0 SAB0 IAB0 Ectopic0 Multiple0 Live Births0 Sex Therapist History LMP: 09/26/2022 (Approximate), Drug Induced Amenorrhea Age at Menarche: Age at First : Age at Menopause: Sex Therapist History Comments: Sexual Activity: Never; Male Contraception: No contraception data on record PAST MEDICAL HISTORY Diagnosis Date Adjustment disorder with depressed mood Psychiatry Dr Pastor Burgess Essential hypertension Hyperlipemia Irregular menstrual cycle PCOS (polycystic ovarian syndrome) Schizoaffective disorder (HCC) Dr Burgess PAST SURGICAL HISTORY Procedure Laterality Date NONE FAMILY HISTORY Problem Relation Age of Onset None Mother None Father No Known Problems Sister No Known Problems Sister No Known Problems Brother SOCIAL HISTORY Social History Tobacco Use Smoking status: Never Smokeless tobacco: Never Vaping Use Vaping status: Never Used Substance Use Topics Alcohol use: No Drug use: No REVIEW OF SYSTEMS Abdomen: No abdominal pain, nausea, vomiting, diarrhea, or constipation. No bloating, early satiety, indigestion, or increased flatulence. Bladder: No dysuria, gross hematuria, urinary frequency, urinary urgency, or incontinence. Breast: No breast lumps, nipple d/c, overlying skin changes, redness or skin retraction. Allergies and current medication updated:Yes SENSITIVE EXAM: The sensitive examination was discussed with the Patient or Patient's Authorized Avionics Systems Technician. As applicable, any other physician, advance practice provider, medical student, or other health professional student that will be observing or involved in the sensitive examination for educational or training purposes was discussed with the Patient or Authorized Avionics Systems Technician. The Patient or Authorized Avionics Systems Technician has agreed to proceed with the sensitive examination. (Sensitive examination includes inspection and/or palpation of the breasts, pelvis, prostate and anorectal regions). EXAM: BP 126/88 Wt 205 lb 12.8 oz (93.4kg) LMP 09/26/2022 GENERAL: pleasant, female in no apparent distress HEENT: Normocephalic and atraumatic NECK: Supple and full range of motion DERMATOLOGY: Normal BREAST: soft, non-tender, symmetric, no dominant mass, normal nipple-areolar complex, no lymphadenopathy, no nipple discharge, and fibrocystic changes CHEST: Normal inspiratory effort ABDOMEN: soft, non-tender, and no masses PELVIC: no vulvar lesions, no cervical lesions, good vaginal support, physiologic discharge present BIMANUAL: uterus normal size, shape and consistency, no adnexal masses, non-tender, and no cervical motion tenderness RECTOVAGINAL: deferred. NEURO: alert and oriented x3,exam grossly non-focal EXTREMITIES: normal ASSESSMENT/PLAN: 1) Health maintenance: Pap/HPV up to date. 2) Contraception: n/a not sexually active. 3) Continue norethindrone daily 4) Mammogram screenings to start at age 40 Follow up one year or sooner as needed Chiara Tamayo APRN.ARIESM Allergies As of Date: 10/19/2024 Noted Allergy Reaction CIPRO (CIPROFLOXACIN) 08/05/2005 2 - Rash 4 - Hives Date Reviewed: 10/19/2024 Reviewed by: Chiara Tamayo APRN.CNM - Fully Assessed Reason for Visit: Well Woman [[id number]] Primary Visit Diagnosis:Encounter for gynecological examination (general) (routine) without abnormal findings [Z01.419] Other Visit Diagnosis:PCOS (polycystic ovarian syndrome) [E28.2] Prescriptions as of 10/19/2024 - Norethindrone, Contraceptive, 0.35 mg tablet Take 1 tablet by mouth once daily. - metFORMIN (GLUCOPHAGE) 500 mg tablet Take 1 tablet by mouth two times a day with meals. - vitamin b complex capsule Take 1 capsule by mouth once daily. - Vitamin E, dl, acetate, (VITAMIN E) 400 unit capsule Take 400 Units by mouth once daily. - hydroCHLOROthiazide 12.5 mg tablet every morning. - divalproex DR (DEPAKOTE) 500 mg EC tablet Take 500 mg by mouth twice daily. - atorvastatin (LIPITOR) 40 mg tablet Take 1 tablet by mouth once daily. - lurasidone (LATUDA) 80 mg tablet Take 1 tablet by mouth once daily. - MULTIVIT WITH CALCIUM,IRON,MIN (WOMEN'S MULTIPLE VITAMINS ORAL) Take by mouth once daily. - modafinil (PROVIGI (more content not included)... Normal [facility] Urgent Care Visit Reporton 0 - Urgent Care Visit Report [facility] [address], [address] [place] [id number] OFFICE VISIT Date of Service: 09/15/24 MR#: [id number] Acct: [id number] Name: STEPHEN BAUM Rep #: [id number] : 1985 Provider: ANGEL Prince Age/Sex: 39/F Location: [facility] [place] [place] Status: Signed Intake Vital Signs 08/06/24 13:09 09/15/24 10:32 Height 5 ft 6 in 5 ft 5 in Weight: 202 lb 200 lb 8 oz BMI 32.5 33.3 BP 126/96 H 124/64 H Blood Pressure Location Lt brachial Lt brachial Position Sitting Sitting Respiration 18 16 Pulse 103 H 115 H Pulse Source Monitor NIBP Temp 97.4 F L 97.9 F Temp Source Temporal Oral Pulse Oximetry (%) 99 97 Oxygen Delivery Method room air room air Intake Visit Reasons: CONGESTION, COUGH Chief Complaint: cough, runny nose Public Policy 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 Required: No Is patient in pain?: No Allergies ciprofloxacin (From Cipro) Allergy (Severe, Verified 09/15/24 11:02) Hives Medications ???Medication ???Instructions ???Recorded ???Confirmed ???Type lurasidone 120 mg tablet (Latuda) 120 mg PO QDAY 07/01/17 08/06/24 History vitamin E (dl, acetate) 180 mg 400 unit PO QDAY 07/01/17 08/06/24 History (400 unit) capsule vitamin B complex 1 cap PO DAILY 06/02/19 08/06/24 H istory blood pressure monitor (Blood #1 ea 01/12/21 08/06/24 Rx Pressure Kit) modafinil 200 mg tablet mg PO 02/02/23 08/06/24 History multivitamin (Multiple Vitamins 1 tab PO DAILY 02/02/23 08/06/24 H istory tablet) lamotrigine 100 mg tablet 100 mg PO QDAY 08/06/24 08/06/24 H istory hydrochlorothiazide 25 mg tablet 25 mg PO DAILY #90 tabs 08/13/24 Rx atorvastatin 40 mg tablet 40 mg PO DAILY #90 TABLETS 5 Rx fenofibrate 54 mg tablet 54 mg PO DAILY #90 TABLETS 5 Rx alprazolam 0.5 mg tablet 0.5 mg PO QHS PRN 09/15/24 Histor y amoxicillin 875 mg-potassium 1 tab PO BID 5 days #10 tabs 09/1509/15/24 Rx clavulanate 125 mg tablet benzonatate 100 mg capsule 100 mg PO TID #20 caps 09/15/24 Rx hydroxyzine HCl 25 mg tablet 25 mg PO QD-TID PRN anxiety History norethindrone (contraceptive) 0.35 0.35 mg PO QDAY 09/15/24 Histor y mg tablet (Deblitane) temazepam 15 mg capsule 15 mg PO QHS 09/15/24 History Is last menstrual period known: No Post menopausal: No Patient : No Have you fallen in the past year?: No Nurse's Note: cough, runny nose x 4 days. denies DUNNE, BA, ST, fever. [facility] Medical History (Updated 09/15/24 @ 11:10 by ANGEL Herrera) Borderline type 2 diabetes mellitus Health care maintenance Glucose intolerance (impaired glucose tolerance) Fecal incontinence Hypertension Flu vaccine need Chest pain Fatigue Dysfunctional uterine bleeding Schizoaffective disorder Family History Father Hypertension Sister Mental and behavioral problem Mother Thyroid disorder Social History Smoking Status: Never smoker alcohol intake: never substance use type: does not use what type of physical activity do you participate in: walking frequency: daily seatbelt use: always do you feel safe at home: Yes HPI HPI Chief Complaint: cough, runny nose Details: STEPHEN BAUM, is a 39 F who presents to the office today for cold sx -sx started Tuesday -sx cough is wet with sputum- not spitting it out, runny nose- denies any other sx- did admit to feeling hot and cold -no smoker- no hx asthma or copd -tried so far otc cough medication ROS Const Constitutional: Positive for other (ROS negative x6 except what was placed in HPI) Exam Const General: cooperative, comfortable, no acute distress and diaphoretic (states feels hot in room and with mask on ) Orientation: alert, awake and oriented x3 HENMT Head: normal to inspection and normocephalic Ears: hearing grossly normal bilaterally, external ears normal and TM's normal bilaterally Nose: external nose normal and other (+ congestion and rhinorrhea. Mild erythema and swelling) Face and sinus: normal facial exam, face symmetric and sinus tenderness maxillary Mouth: oral mucosae normal, lip normal, tongue normal, oropharynx normal and moist mucous membranes Throat: posterior oropharynx normal, tonsils normal, uvula midline and postnasal drainage Neck Neck: normal visual inspection, full ROM and no lymphadenopathy Resp Effort Inspection: normal respiratory effort, able to speak in complete sentences and symmetric chest movement Auscultation: Bilateral: Clear to Auscultation, Left: Clear to Auscultation and Right: Clear to Auscultation Cardio Rate: regular rate Rhythm: regular rhythm Heart Sounds: S1 normal and S2 normal Other: rechec (more content not included)... Normal [facility] Internal Medicine Office Vis shukri 08-06-2024 Internal Medicine Office Visit [facility] [address] [place], [place] [address] OFFICE VISIT Date of Service: 08/06/24 MR#: [id number] Acct: [id number] Name: STEPHEN BAUM Rep #: [id number] : 1985 Provider: Dr. Suzy russell MD Age/Sex: 39/F Location: [facility] [place], [place] Status: Signed Intake Vital Signs 02/06/24 12:55 08/06/24 13:09 Height 5 ft 6 in 5 ft 6 in Weight: 202 lb BMI 32.5 BP 126/96 H Blood Pressure Location Lt brachial Position Sitting Respiration 18 Pulse 103 H Pulse Source Monitor Temp 97.4 F L Temp Source Temporal Pulse Oximetry (%) 99 Oxygen Delivery Method room air Intake Visit Reasons: 6 M FU Chief Complaint: Follow-up chronic conditions Public Policy Analyst Required: No Is patient in pain?: No Allergies ciprofloxacin (From Cipro) Allergy (Severe, Verified 08/06/24 12:57) Hives Medications ???Medication ???Instructions ???Recorded ???Confirmed ???Type lurasidone 120 mg tablet (Latuda) 120 mg PO QDAY 07/01/17 08/06/24 History vitamin E (dl, acetate) 180 mg 400 unit PO QDAY 07/01/17 08/06/24 History (400 unit) capsule vitamin B complex 1 cap PO DAILY 06/02/19 08/06/24 H istory blood pressure monitor (Blood #1 ea 01/12/21 08/06/24 Rx Pressure Kit) metformin 500 mg tablet mg PO 02/02/23 08/06/24 History modafinil 200 mg tablet mg PO 02/02/23 08/06/24 History multivitamin (Multiple Vitamins 1 tab PO DAILY 02/02/23 08/06/24 H istory tablet) hydrochlorothiazide 12.5 mg tablet 12.5 mg PO DAILY #90 tabs 08/06/24 Rx atorvastatin 40 mg tablet See Rx Instructions .Route 5 03/10/25 Rx .COMPLEX #90 tabs fenofibrate 54 mg tablet 54 mg PO QDAY #90 tabs 07/23/24 Rx lamotrigine 100 mg tablet 100 mg PO QDAY 08/06/24 08/06/24 H istory [facility] Medical History (Updated 08/06/24 @ 16:[address] Suzy Koehler MD) Borderline type 2 diabetes mellitus Health care maintenance Glucose intolerance (impaired glucose tolerance) Fecal incontinence Hypertension Flu vaccine need Chest pain Fatigue Dysfunctional uterine bleeding Schizoaffective disorder Family History Father Hypertension Sister Mental and behavioral problem Mother Thyroid disorder Social History Smoking Status: Never smoker alcohol intake: never substance use type: does not use what type of physical activity do you participate in: walking frequency: daily seatbelt use: always do you feel safe at home: Yes HPI HPI Chief Complaint: Follow-up chronic conditions Details: STEPHEN BAUM, is a 39 F who presents to the office today for follow-up of her chronic conditions. History of hyperlipidemia, currently on fenofibrate and atorvastatin. Recent labs reviewed, some improvement overall in her numbers. No muscle pain or weakness reported. Feels well. Also history of hypertension, blood pressure today is at 126/96 mmHg. Heart rate slightly elevated. She states that she is taking her medication consistently and her readings at home have been stable but does not have numbers at this time. No chest pain, palpitation or shortness of breath. History of dysfunctional uterine bleeding currently on oral contraceptives. Follows up with [facility] at the clinic. She states that she does not like that she does not have them monthly period. She would like to try something nonhormonal. Other chronic conditions are stable. ROS Const Constitutional: No body ache, chills, excessive sweating, fatigue, fever(s), frequent falls, headache(s), snoring, weakness, sleep problems or change in appetite Eyes Eyes: No blurry vision, change in vision, bulging eyes, floaters, visual disturbances, eye pain or Light sensitivity ENT ENT: No abnormal hearing, ear or mastoid pain, tinnitus, balance problems, nosebleed/epistaxis, nasal congestion, headache(s), neck pain or sore throat Resp Respiratory: No cough, chest congestion, pain on inspiration, shortness of breath, snoring or wheezing Cardio Cardiology: No chest pain at rest, chest pain with exertion, excessive sweating, shortness of breath, dyspnea on exertion, lightheadedness, orthopnea or palpitations Gastro GI: No abdominal pain, change in bowel habits, constipation, cramping, diarrhea, nausea/dyspepsia or vomiting Genitourinary-Female: No burning urination, painful urination, urinary incontinence, urinary frequency, suprapubic fullness, side pain, abnormal vaginal bleeding or pelvic pain Musc Musculoskeletal: No abnormal gait, joint pain, back pain, limited range of motion, neck pain or numbness Skin Skin: No dry skin, redness, excessive hair growth, yellowing of the eye, lesions, itchy eyes, rash or wounds Neuro Morgan (more content not included)... Normal [facility] BUN/creatinine ratioOrdered By: Suzy Koehler on 07-27-2024 Urea nitrogen/Creatinine [Mass ratio] 16.1 mg/mg 10-20 [facility] Bilirubin, totalOrdered By: Taylorfullertonramin Koehler on 07-27-2024 Bilirubin [Mass/Vol] 0.39 mg/dL 0.00-1.30 [facility] Calculated very low density lipoprotein (VLDL) cholesterol measurementOrdered By: Suzy Koehler on 07-27-2024 VLDL Cholesterol 38 mg/dL 5-40 [facility] Carbon dioxide measurementOr dered By: [facility] Hospital[facility]in Koehler on 07-27-2024 CO2 [Moles/Vol] 24.4 mmol/L 22.0-29.0 [facility] Chloride measurementOrdered By: [facility] Hospitalramin Koehler on 07-27-2024 Chloride [Moles/Vol] 101 mmol/L 96-108 [facility] Comprehensive Metabolic Prof ilon 07-27-2024 Albumin [Mass/Vol] 4.6 g/dL Normal 3.5-5.0 [facility] Comment on above: Performed By: #### L 500.4100, L500.4050, L501.9900 ####[facility] [address] [place], [address] Albumin/Globulin [Mass ratio] 2.0 {ratio} Normal 0.9-2.4 [facility] Comment on above: Performed By: #### L 500.4100, L500.4050, L501.9985 ####[facility] [address] [place], [address] ALK PHOS 74 U/L Normal 35-104 [facility] Comment on above: Performed By: #### L 500.4100, L500.4050, L501.9985 ####[facility] [address] [place], [address] ALT [Catalytic activity/Vol] 58 U/L High <=34 [facility] Comment on above: Performed By: #### L 500.4100, L500.4050, L501.9985 ####[facility] [address] [place], [address] Anion gap [Moles/Vol] 13 mmol/L Normal 5-15 [facility] Comment on above: Performed By: #### L 500.4100, L500.4050, L501.9985 ####[facility] [address] [place], [address] AST [Catalytic activity/Vol] 32 U/L Normal <=31 [facility] Comment on above: Performed By: #### L 500.4100, L500.4050, L501.9985 ####[facility] [address] [place], [address] Bilirubin [Mass/Vol] 0.39 mg/dL Normal 0.00-1.30 [facility] Comment on above: Performed By: #### L 500.4100, L500.4050, L501.9985 ####[facility] [address] [place], [address] BUN/CRE 16.1 RATIO Normal 10-20 [facility] Comment on above: Performed By: #### L 500.4100, L500.4050, L501.9985 ####[facility] [address] [place], [address] Calcium [Mass/Vol] 9.6 mg/dL Normal 7.6-11.0 [facility] Comment on above: Performed By: #### L 500.4100, L500.4050, L501.9985 ####[facility] [address] [place], [address] Chloride [Moles/Vol] 101 mmol/L Normal 96-108 [facility] Comment on above: Performed By: #### L 500.4100, L500.4050, L501.9985 ####[facility] [address] [place], [address] CO2 [Moles/Vol] 24.4 mmol/L Normal 22.0-29.0 [facility] Comment on above: Performed By: #### L 500.4100, L500.4050, L501.9985 ####[facility] [address] [place], [address] Creatinine [Mass/Vol] 0.88 mg/dL Normal 0.70-1.20 [facility] Comment on above: Performed By: #### L 500.4100, L500.4050, L501.9985 ####[facility] [address] [place], [address] GFR/1.73 sq M.predicted among non-blacks MDRD (S/P/Bld) [Vol rate/Area] 87 mL/min/{1.73_m2} Normal >60 [facility] Comment on above: Result Comment: mL/m in/1.73m2 CKD-EPI Creatinine Equation (2020) Performed By: #### L 500.4100, L500.4050, L501.9985 ####[facility] [address] [place], [address] Globulin (S) [Mass/Vol] 2.3 g/dL Normal 2.2-4.2 [facility] Comment on above: Performed By: #### L 500.4100, L500.4050, L501.9985 ####[facility] [address] [place], [address] Glucose [Mass/Vol] 104 mg/dL High 70-99 [facility] Comment on above: Performed By: #### L 500.4100, L500.4050, L501.9985 ####[facility] [address] [place], [address] Potassium [Moles/Vol] 3.8 mmol/L Normal 3.3-5.1 [facility] Comment on above: Performed By: #### L 500.4100, L500.4050, L501.9985 ####[facility] [address] [place], [address] Sodium [Moles/Vol] 138 mmol/L Normal 133-145 [facility] Comment on above: Performed By: #### L 500.4100, L500.4050, L501.9985 ####[facility] [address] [place], [address] T PROT 6.9 g/dL Normal 5.9-8.4 [facility] Comment on above: Performed By: #### L 500.4100, L500.4050, L501.9985 ####[facility] [address] [place], [address] Urea nitrogen [Mass/Vol] 14 mg/dL Normal 4-19 [facility] Comment on above: Performed By: #### L 500.4100, L500.4050, L501.9985 ####[facility] [address] [place], [address] GFR/1.73 sq M.predicted hosea g non-blacks MDRD (S/P/Bld) [Vol rate/Area]Ordered By: Suzy Koehler on 07-27-2024 Estimated GFR (MDRD) Non-Af Amer 87 >60 [facility] Comment on above: mL/min/1.73m2 CKD-EP I Creatinine Equation (2020) Hemoglobin A1con 07-27-2024 HbA1c (Bld) [Mass fraction] 6.0 % Normal <=5.6 [facility] Comment on above: Performed By: #### L 500.4100, L500.4050, L501.9985 ####[facility] [address] [place], [address] Hemoglobin A1c percentageOrd ered By: Suzy Koehler on 07-27-2024 HbA1c (Bld) [Mass fraction] 6.0 % >5.7 [facility] LDL calc ser/plasOrdered By: Suzy Koehler on 07-27-2024 LDL Cholesterol, Calculated 98 mg/dL [facility] Comment on above: Btwpeuixgo=054-587 m g/dL & Higher Fzhq=642 mg/dL or greater Laboratory - Chemistry and C hemistry - challengeOrdered By: Suzy Koehler on 07-27-2024 AST [Catalytic activity/Vol] 32 U/L <32 [facility] Lipid Profileon 07-27-2024 CHOL:HDL 4.14 Normal [facility] Comment on above: Performed By: #### L 500.4100, L500.4050, L501.9985 ####[facility] [address] [place], [address] Cholesterol [Mass/Vol] 179 mg/dL Normal <=200 [facility] Comment on above: Result Comment: Chol esterol level, Desirable <200 mg/dL Borderline high cholesterol 200-239 mg/dL High cholesterol >=240 mg/dL Recommendations of the NCEP Adult Treatment Panel for the following risk-cutoff thresholds for the [place] population. Performed By: #### L 500.4100, L500.4050, L501.9985 ####[facility] [address] [place], [address] Cholesterol in HDL [Mass/Vol] 43 mg/dL Normal [facility] Comment on above: Result Comment: Rashida onal Cholesterol Education Program (NCEP) guidelines: <40 mg/dL: Low HDL-cholesterol (major risk factor for CHD) >= 60 mg/dL: High HDL-cholesterol (negative risk factor for CHD) HDL-cholesterol is affected by a number of factors, e.g. smoking, exercise, hormones, sex and age. Performed By: #### L 500.4100, L500.4050, L501.9985 ####[facility] [address] [place], [address] Cholesterol in LDL [Mass/Vol] 98 mg/dL Normal [facility] Comment on above: Result Comment: Bord jnzmtm=665-983 mg/dL Higher Jpsq=470 mg/dL or greater Performed By: #### L 500.4100, L500.4050, L501.9985 ####[facility] [address] [place], [address] Cholesterol in VLDL [Mass/Vol] 38 mg/dL Normal 5-40 [facility] Comment on above: Performed By: #### L 500.4100, L500.4050, L501.9985 ####[facility] [address] [place], [address] Triglyceride [Mass/Vol] 189 mg/dL Normal [facility] Comment on above: Result Comment: The drugs N-Acetylcysteine and Metamizole may falsely depress this assay. Normal range: <150 mg/dL Borderline High: 150-199 mg/dL High: 200-499 mg/dL Very High: >500 mg/dL Performed By: #### L 500.4100, L500.4050, L501.9985 ####[facility] [address] [place], [address] Screening total cholesterol/ high density lipoprotein (HDL) cholesterol ratioOrdered By: Suzy Koehler on 07-27-2024 Cholesterol.total/Cho lesterol in HDL [Mass ratio] 4.14 {ratio} [facility] Serum creatinine measurement (mass/volume)Ordered By: Suzy Koehler on 07-27-2024 Creatinine [Mass/Vol] 0.88 mg/dL 0.70-1.20 [facility] Serum globulin measurementOr dered By: Suzy Koehler on 07-27-2024 Globulin (S) [Mass/Vol] 2.3 g/dL 2.2-4.2 [facility] Serum glucose measurement (m ass/volume)Ordered By: Suzy Koehler on 07-27-2024 Glucose [Mass/Vol] 104 mg/dL High 70-99 [facility] Serum or plasma alanine garcia otransferase (ALT) measurementOrdered By: Suzy Koelher on 07-27-2024 ALT [Catalytic activity/Vol] 58 U/L High <35 [facility] Serum or plasma albumin heaven urement (mass/volume)Ordered By: Suzy Koehler on 07-27-2024 Albumin [Mass/Vol] 4.6 g/dL 3.5-5.0 [facility] Serum or plasma albumin/glob ulin mass ratioOrdered By: Suzy Koehler on 07-27-2024 Albumin/Globulin [Mass ratio] 2.0 {ratio} 0.9-2.4 [facility] Serum or plasma alkaline gabriella sphatase measurementOrdered By: Suzy Koehler on 07-27-2024 ALP [Catalytic activity/Vol] 74 U/L 35-104 [facility] Serum or plasma anion gap de termination (moles/volume)Ordered By: Suzy Koehler on 07-27-2024 Anion gap [Moles/Vol] 13 mmol/L 5-15 [facility] Serum or plasma calcium heaven urement (mass/volume)Ordered By: Suzy Koehler on 07-27-2024 Calcium [Mass/Vol] 9.6 mg/dL 7.6-11.0 [facility] Serum or plasma cholesterol in HDL measurement (mass/volume)Ordered By: Suzy Koehler on 07-27-2024 Cholesterol in HDL [Mass/Vol] 43 mg/dL >40 [facility] Comment on above: National Cholesterol Education Program (NCEP) guidelines:<40 mg/dL: Low HDL-cholesterol (major risk factor for CHD)>= 60 mg/dL: High HDL-cholesterol (negative risk factor for CHD)HDL-cholesterol is affected by a number of factors, e.g. smoking, exercise, hormones, sex and age. Serum or plasma cholesterol measurement (mass/volume)Ordered By: Suzy Koehler on 07-27-2024 Cholesterol [Mass/Vol] 179 mg/dL <201 [facility] Comment on above: Cholesterol level, D esirable <200 mg/dLBorderline high cholesterol 200-239 mg/dLHigh cholesterol >=240 mg/dLRecommendations of the NCEP Adult Treatment Panel for the following risk-cutoff thresholds for the [place] population. Serum or plasma potassium me asurementOrdered By: Suzy Koehler on 07-27-2024 Potassium [Moles/Vol] 3.8 mmol/L 3.3-5.1 [facility] Serum or plasma sodium measu rement (moles/volume)Ordered By: Suzy Koehler on 07-27-2024 Sodium [Moles/Vol] 138 mmol/L 133-145 [facility] Serum or plasma urea nitroge n measurement (mass/volume)Ordered By: Suzy Koehler on 07-27-2024 Urea nitrogen [Mass/Vol] 14 mg/dL 4-19 [facility] Total proteinOrdered By: Devon Koehler on 07-27-2024 Protein [Mass/Vol] 6.9 g/dL 5.9-8.4 [facility] Triglycerides measurementOrd ered By: Suzy Koehler on 07-27-2024 Triglyceride [Mass/Vol] 189 mg/dL <199 [facility] Comment on above: The drugs N-Acetylcy steine and Metamizole may falsely depress this assay. Normal range: <150 mg/dLBorderline High: 150-199 mg/dLHigh: 200-499 mg/dLVery High: >500 mg/dL Internal Medicine Office Vis itokatelynn 02-06-2024 Internal Medicine Office Visit [facility] [address] [place] [address] [place] [address] OFFICE VISIT Date of Service: 02/06/24 MR#: [id number] Acct: [id number] Name: STEPHEN BAUM Rep #: [id number] : 1985 Provider: Dr. Suzy russell MD Age/Sex: 38/F Location: [facility] [place] [place] Status: Signed Intake Vital Signs 08/04/23 14:49 02/06/24 12:55 Height 5 ft 6 in 5 ft 6 in Weight: 204 lb BMI 32.9 BP 122/78 H Blood Pressure Location Lt brachial Position Sitting Respiration 14 Pulse 99 Pulse Source Monitor Temp 97.6 F L Temp Source Temporal Pulse Oximetry (%) 97 Oxygen Delivery Method room air Intake Visit Reasons: 6 m fu Chief Complaint: Follow-up chronic conditions Public Policy Analyst Required: No Is patient in pain?: No Allergies ciprofloxacin (From Cipro) Allergy (Severe, Verified 02/06/24 12:47) Hives Medications ???Medication ???Instructions ???Recorded ???Confirmed ???Type lurasidone 120 mg tablet (Latuda) 120 mg PO QDAY 07/01/17 02/06/24 History vitamin E (dl, acetate) 180 mg 400 unit PO QDAY 07/01/17 02/06/24 History (400 unit) capsule vitamin B complex 1 cap PO DAILY 06/02/19 02/06/24 History blood pressure monitor (Blood #1 ea 01/12/21 02/06/24 Rx Pressure Kit) divalproex 500 mg tablet,delayed mg PO 02/02/23 02/06/24 History release metformin 500 mg tablet mg PO 02/02/23 02/06/24 History modafinil 200 mg tablet mg PO 02/02/23 02/06/24 History multivitamin (Multiple Vitamins 1 tab PO DAILY 02/02/23 02/06/24 History tablet) hydrochlorothiazide 12.5 mg tablet 12.5 mg PO DAILY #90 tabs 08/04/23 02/06/24 Rx atorvastatin 40 mg tablet See Rx Instructions .Route 01/16/24 02/06/24 Rx .COMPLEX #90 tabs fenofibrate 54 mg tablet 54 mg PO QDAY #90 tabs 02/06/24 02/06/24 Rx PFSH Medical History Health care maintenance Glucose intolerance (impaired glucose tolerance) Fecal incontinence Hypertension Flu vaccine need Chest pain Fatigue Dysfunctional uterine bleeding Schizoaffective disorder Family History Father Hypertension Sister Mental and behavioral problem Mother Thyroid disorder Social History Smoking Status: Never smoker alcohol intake: never substance use type: does not use what type of physical activity do you participate in: walking frequency: daily seatbelt use: always do you feel safe at home: Yes HPI HPI Chief Complaint: Follow-up chronic conditions Details: STEPHEN BAUM, is a 38 F who presents to the office today for follow-up of her chronic medical conditions. No acute concerns at this time. Had labs done about a month ago. Triglycerides still elevated. Currently on 40 mg of atorvastatin which she reports compliance with. History of impaired glucose tolerance on metformin, recent A1c stable at 5.5. Currently at a BMI of 32.9. No concerns for hypoglycemia. History of hypertension, blood pressure today at 122/78 mmHg. She states that she is not checking her numbers at home. No chest pain, palpitation or shortness of breath. Other chronic medical conditions are stable. ROS Const Constitutional: No body ache, chills, excessive sweating, fatigue, fever(s), frequent falls, headache(s), snoring, weakness, sleep problems or change in appetite Eyes Eyes: No blurry vision, change in vision, dry eyes, bulging eyes, floaters, eye pain or Light sensitivity ENT ENT: No abnormal hearing, ear or mastoid pain, tinnitus, balance problems, nosebleed/epistaxis, nasal congestion, headache(s), neck pain or sore throat Resp Respiratory: No cough, excessive phlegm production, pain on inspiration, shortness of breath, snoring or wheezing Cardio Cardiology: No chest pain at rest, chest pain with exertion, excessive sweating, shortness of breath, dyspnea on exertion, lightheadedness, orthopnea or palpitations Gastro GI: No abdominal pain, change in bowel habits, constipation, cramping, diarrhea, nausea/dyspepsia or vomiting Genitourinary-Female: No burning urination, painful urination, urinary incontinence, urinary frequency, suprapubic fullness, side pain, abnormal vaginal bleeding or pelvic pain Musc Musculoskeletal: No abnormal gait, joint pain, back pain, limited range of motion, loss of height, muscle cramps, neck pain or numbness Skin Skin: No dry skin, redness, excessive hair growth, yellowing of the eye, lesions, itchy eyes, rash or wounds Neuro Neurology: No abnormal gait, abnormal hearing, behavioral changes, unsteady gait/balance, weakness, frequent falls, headache(s), memory loss or numbness Psych Psychiatric: No anxiety, No behavioral changes, No change in appetite, No de (more content not included)... Normal [facility] Testosterone, Total / Freeon 01-18-2024 [facility] ng/dL Abnormal 0.10-0.85 [facility] Comment on above: Order Comment: N Performed By: #### L 500.4100, L503.6550, L506.1000, L503.0105, L3100.5310, L501.8100, L503.6030, L500.4050, L100.0500, L501.9985 ####[facility] [address] [facility]. [place], [place], [phone] TESTOSTERONE, T 44 ng/dL Normal 8-60 [facility] Comment on above: Order Comment: N Performed By: #### L 500.4100, L503.6550, L506.1000, L503.0105, L3100.5310, L501.8100, L503.6030, L500.4050, L100.0500, L501.9985 ####[facility] [address] [facility]. [place], [place], [phone] TESTOSTERONE,%F 3.74 High 0.50-2.80 [facility] Comment on above: Order Comment: N Result Comment: Perf ormed at: - [facility] [address] [id number] Disease Management Nurse: Wes Hoover PhD, Phone: [phone] Performed at: [address] [id number] Disease Management Nurse: Rica Hawkins MD, Phone: [phone] Performed By: #### L 500.4100, L503.6550, L506.1000, L503.0105, L3100.5310, L501.8100, L503.6030, L500.4050, L100.0500, L501.9985 ####[facility] [address] [place], [place], [id number] CBC-Complete Blood [facility]nt [facility] Erythrocyte distribution width (RBC) [Ratio] 12.0 % Normal 11.6-14.6 [facility] Comment on above: Performed By: #### L 500.4100, L503.6550, L506.1000, L503.0105, L3100.5310, L501.8100, L503.6030, L500.4050, L100.0500, L501.9985 #### [facility] [address] [place], [place], [phone] ([phone] Hematocrit (Bld) [Volume fraction] 46.1 % Normal 37-47 [facility] Comment on above: Performed By: #### L 500.4100, L503.6550, L506.1000, L503.0105, L3100.5310, L501.8100, L503.6030, L500.4050, L100.0500, L501.9985 #### [facility] [address] [place], [place], [phone] Hemoglobin (Bld) [Mass/Vol] 15.3 g/dL High 12.0-15.0 [facility] Comment on above: Performed By: #### L 500.4100, L503.6550, L506.1000, L503.0105, L3100.5310, L501.8100, L503.6030, L500.4050, L100.0500, L501.9985 #### [facility] [address] [place], [address] MCH (RBC) [Entitic mass] 30.3 pg Normal 27.0-32.0 [facility] Comment on above: Performed By: #### L 500.4100, L503.6550, L506.1000, L503.0105, L3100.5310, L501.8100, L503.6030, L500.4050, L100.0500, L501.9985 #### [facility] [address] [place], [address] MCHC (RBC) [Mass/Vol] 33.2 g/dL Normal 32-36 [facility] Comment on above: Performed By: #### L 500.4100, L503.6550, L506.1000, L503.0105, L3100.5310, L501.8100, L503.6030, L500.4050, L100.0500, L501.9985 #### [facility] [address] [place], [address] MCV (RBC) [Entitic vol] 91.3 fL Normal 81-99 [facility] Comment on above: Performed By: #### L 500.4100, L503.6550, L506.1000, L503.0105, L3100.5310, L501.8100, L503.6030, L500.4050, L100.0500, L501.9985 #### [facility] [address] [place], [address] Platelet mean volume (Bld) [Entitic vol] 9.6 fL Normal 6.2-12.0 [facility] Comment on above: Performed By: #### L 500.4100, L503.6550, L506.1000, L503.0105, L3100.5310, L501.8100, L503.6030, L500.4050, L100.0500, L501.9985 #### [facility] [address] [place], [address] Platelets (Bld) [#/Vol] 337 10*3/uL Normal 150-450 [facility] Comment on above: Performed By: #### L 500.4100, L503.6550, L506.1000, L503.0105, L3100.5310, L501.8100, L503.6030, L500.4050, L100.0500, L501.9985 #### [facility] [address] [place], [address] RBC (Bld) [#/Vol] 5.05 10*6/uL Normal 4.2-5.4 [facility] Comment on above: Performed By: #### L 500.4100, L503.6550, L506.1000, L503.0105, L3100.5310, L501.8100, L503.6030, L500.4050, L100.0500, L501.9985 #### [facility] [address] [place], [address] RDW SD 40.0 fl Normal 35.1-43.9 [facility] Comment on above: Performed By: #### L 500.4100, L503.6550, L506.1000, L503.0105, L3100.5310, L501.8100, L503.6030, L500.4050, L100.0500, L501.9985 #### [facility] [address] [place], [address] WBC (Bld) [#/Vol] 6.6 10*3/uL Normal 4.4-11.0 [facility] Comment on above: Performed By: #### L 500.4100, L503.6550, L506.1000, L503.0105, L3100.5310, L501.8100, L503.6030, L500.4050, L100.0500, L501.9985 #### [facility] [address] [place], [place], [phone] Comprehensive Metabolic Prof ilon 01-13-2024 Albumin [Mass/Vol] 3.8 g/dL Normal 3.2-5.0 [facility] Comment on above: Performed By: #### L 500.4100, L503.6550, L506.1000, L503.0105, L3100.5310, L501.8100, L503.6030, L500.4050, L100.0500, L501.9985 #### [facility] [address] [place], [place], [phone] Albumin/Globulin [Mass ratio] 1.2 {ratio} Normal 0.9-2.4 [facility] Comment on above: Performed By: #### L 500.4100, L503.6550, L506.1000, L503.0105, L3100.5310, L501.8100, L503.6030, L500.4050, L100.0500, L501.9985 #### [facility] [address] [place], [place], [phone] ALK P 77 U/L Normal 45-117 [facility] Comment on above: Performed By: #### L 500.4100, L503.6550, L506.1000, L503.0105, L3100.5310, L501.8100, L503.6030, L500.4050, L100.0500, L501.9985 #### [facility] [address] [place], [place], [id number] ALT [Catalytic activity/Vol] 57 U/L High 13-56 [facility] Comment on above: Performed By: #### L 500.4100, L503.6550, L506.1000, L503.0105, L3100.5310, L501.8100, L503.6030, L500.4050, L100.0500, L501.9985 #### [facility] [address] [place], [address] ([phone]) AST [Catalytic activity/Vol] 17 U/L Normal 15-37 [facility] Comment on above: Performed By: #### L 500.4100, L503.6550, L506.1000, L503.0105, L3100.5310, L501.8100, L503.6030, L500.4050, L100.0500, L501.9985 #### [facility] [address] [place], [place], [phone] ([phone] Bilirubin [Mass/Vol] 0.40 mg/dL Normal 0.20-1.00 [facility] Comment on above: Result Comment: For patients on eltrombopag therapy, use of Dimension Dutton TBIL is not recommended. Performed By: #### L 500.4100, L503.6550, L506.1000, L503.0105, L3100.5310, L501.8100, L503.6030, L500.4050, L100.0500, L501.9985 #### [facility] [address] [place], [place], [phone] (958) BUN/CRE 16.9 RATIO Normal 10-20 [facility] Comment on above: Performed By: #### L 500.4100, L503.6550, L506.1000, L503.0105, L3100.5310, L501.8100, L503.6030, L500.4050, L100.0500, L501.9985 #### [facility] [address] [place], [address] [phone]) CA,Total 9.0 mg/dL Normal 8.5-10.1 [facility] Comment on above: Performed By: #### L 500.4100, L503.6550, L506.1000, L503.0105, L3100.5310, L501.8100, L503.6030, L500.4050, L100.0500, L501.9985 #### [facility] [address] [place], [address] Chloride [Moles/Vol] 108 mmol/L High 98-107 [facility] Comment on above: Performed By: #### L 500.4100, L503.6550, L506.1000, L503.0105, L3100.5310, L501.8100, L503.6030, L500.4050, L100.0500, L501.9985 #### [facility] [address] [place], [address] CO2 [Moles/Vol] 25.0 mmol/L Normal 21.0-32.0 [facility] Comment on above: Performed By: #### L 500.4100, L503.6550, L506.1000, L503.0105, L3100.5310, L501.8100, L503.6030, L500.4050, L100.0500, L501.9985 #### [facility] [address] [place], [place], [phone] ([phone]) Creatinine [Mass/Vol] 0.83 mg/dL Normal 0.55-1.02 [facility] Comment on above: Result Comment: The validity of the calculated GFR GFRAA in patients over 70 years has not been determined. Clinical correlation is essential. Performed By: #### L 500.4100, L503.6550, L506.1000, L503.0105, L3100.5310, L501.8100, L503.6030, L500.4050, L100.0500, L501.9985 #### [facility] [address] [place], [address] EST GFR - AA 100 mL/min Normal >60 [facility] Comment on above: Result Comment: Afri can Somali GFR Calc Performed By: #### L 500.4100, L503.6550, L506.1000, L503.0105, L3100.5310, L501.8100, L503.6030, L500.4050, L100.0500, L501.9985 #### [facility] [address] [place], [place], [phone] ([phone]) GAP 7 Normal 5-15 [facility] Comment on above: Performed By: #### L 500.4100, L503.6550, L506.1000, L503.0105, L3100.5310, L501.8100, L503.6030, L500.4050, L100.0500, L501.9985 #### [facility] [address] [place], [address] (590 GFR/1.73 sq M.predicted among non-blacks MDRD (S/P/Bld) [Vol rate/Area] 83 mL/min/{1.73_m2} Normal >60 [facility] Comment on above: Result Comment: Non- GFR Calc Performed By: #### L 500.4100, L503.6550, L506.1000, L503.0105, L3100.5310, L501.8100, L503.6030, L500.4050, L100.0500, L501.9985 #### [facility] [address] [place], [place], [phone] ([phone]) Globulin (S) [Mass/Vol] 3.1 g/dL Normal 2.2-4.2 [facility] Comment on above: Performed By: #### L 500.4100, L503.6550, L506.1000, L503.0105, L3100.5310, L501.8100, L503.6030, L500.4050, L100.0500, L501.9985 #### [facility] [address] [place], [place], [phone] Glucose [Mass/Vol] 104 mg/dL Normal 74-106 [facility] Comment on above: Result Comment: Fast ing Glucose result from 100 to 125 mg/dL suggests IMPAIRED HOMEOSTASIS per A.D.A. criteria. Performed By: #### L 500.4100, L503.6550, L506.1000, L503.0105, L3100.5310, L501.8100, L503.6030, L500.4050, L100.0500, L501.9985 #### [facility] [address] [place], [address] Potassium [Moles/Vol] 3.8 mmol/L Normal 3.5-5.1 [facility] Comment on above: Performed By: #### L 500.4100, L503.6550, L506.1000, L503.0105, L3100.5310, L501.8100, L503.6030, L500.4050, L100.0500, L501.9985 #### [facility] [address] [place], [address] Sodium [Moles/Vol] 140 mmol/L Normal 136-145 [facility] Comment on above: Performed By: #### L 500.4100, L503.6550, L506.1000, L503.0105, L3100.5310, L501.8100, L503.6030, L500.4050, L100.0500, L501.9985 #### [facility] [address] [place], [address] T PROT 6.9 g/dL Normal 6.4-8.2 [facility] Comment on above: Performed By: #### L 500.4100, L503.6550, L506.1000, L503.0105, L3100.5310, L501.8100, L503.6030, L500.4050, L100.0500, L501.9985 #### [facility] [address] [place], [address] Urea nitrogen [Mass/Vol] 14 mg/dL Normal 7-18 [facility] Comment on above: Performed By: #### L 500.4100, L503.6550, L506.1000, L503.0105, L3100.5310, L501.8100, L503.6030, L500.4050, L100.0500, L501.9985 #### [facility] [address] [place], [place], [phone] Ferritinon 01-13-2024 Ferritin [Mass/Vol] 90 ng/mL Normal 8-252 [facility] Comment on above: Performed By: #### L 500.4100, L503.6550, L506.1000, L503.0105, L3100.5310, L501.8100, L503.6030, L500.4050, L100.0500, L501.9985 #### [facility] [address] [place], [place], [phone] Hemoglobin A1con 01-13-2024 HbA1c (Bld) [Mass fraction] 5.5 % Normal 3.8-5.6 [facility] Comment on above: Result Comment: Norm al < 5.7 % Prediabetic 5.7 - 6.4 % Diabetic >or= 6.5 % Please note range changes. Performed By: #### L 500.4100, L503.6550, L506.1000, L503.0105, L3100.5310, L501.8100, L503.6030, L500.4050, L100.0500, L501.9985 #### [facility] [address] [place], [place], [phone] Iron+Iron Binding Capacityon 01-13-2024 Iron [Mass/Vol] 86 ug/dL Normal 50-170 [facility] Comment on above: Performed By: #### L 500.4100, L503.6550, L506.1000, L503.0105, L3100.5310, L501.8100, L503.6030, L500.4050, L100.0500, L501.9985 #### [facility] [address] [place], [place], [phone] IRON SATURATION 22.9 Normal 15.0-55.0 [facility] Comment on above: Performed By: #### L 500.4100, L503.6550, L506.1000, L503.0105, L3100.5310, L501.8100, L503.6030, L500.4050, L100.0500, L501.9985 #### [facility] [address] [place], [place], [phone] TIBC 375 ug/dL Normal 250-450 [facility] Comment on above: Performed By: #### L 500.4100, L503.6550, L506.1000, L503.0105, L3100.5310, L501.8100, L503.6030, L500.4050, L100.0500, L501.9985 #### [facility] [address] [facility] [place], [place], [phone] Lipid Profileon 01-13-2024 Cholesterol [Mass/Vol] 173 mg/dL Normal 200 [facility] Comment on above: Result Comment: <200 mg/dL Desirable 200-240 mg/dL Borderline >240 mg/dL High Risk Performed By: #### L 500.4100, L503.6550, L506.1000, L503.0105, L3100.5310, L501.8100, L503.6030, L500.4050, L100.0500, L501.9985 #### [facility] [address] [place], [address] Cholesterol in HDL [Mass/Vol] 40 mg/dL Normal [facility] Comment on above: Result Comment: The drugs N-Acetylcysteine and Metamizole may falsely depress this assay. Reference Range HDL <40 mg/dL Low HDL Cholesterol HDL >or= 60 mg/dL High HDL Cholesterol Performed By: #### L 500.4100, L503.6550, L506.1000, L503.0105, L3100.5310, L501.8100, L503.6030, L500.4050, L100.0500, L501.9985 #### [facility] [address] [place], [place], [phone] ([phone]) Cholesterol in LDL [Mass/Vol] 79 mg/dL Normal 0-130 [facility] Comment on above: Performed By: #### L 500.4100, L503.6550, L506.1000, L503.0105, L3100.5310, L501.8100, L503.6030, L500.4050, L100.0500, L501.9985 #### [facility] [address] [place], [address] ([phone]) Cholesterol in VLDL [Mass/Vol] 54 mg/dL High 5-40 [facility] Comment on above: Performed By: #### L 500.4100, L503.6550, L506.1000, L503.0105, L3100.5310, L501.8100, L503.6030, L500.4050, L100.0500, L501.9985 #### [facility] [address] [place], [address] ([phone]) Triglyceride [Mass/Vol] 271 mg/dL High [facility] Comment on above: Result Comment: The drugs N-Acetylcysteine and Metamizole may falsely depress this assay. Serum Triglycerides Reference Interval Normal <150 mg/dL Borderline high 150 - 199 mg/dL High 200 - 499 mg/dL Very High > or = 500 mg/dL Performed By: #### L 500.4100, L503.6550, L506.1000, L503.0105, L3100.5310, L501.8100, L503.6030, L500.4050, L100.0500, L501.9985 #### [facility] [address] [place], [place], [phone] Valproic Acid (Depakene) Lev emily 01-13-2024 VALPROIC ACID 27 ug/mL Low 50-100 [facility] Comment on above: Performed By: #### L 500.4100, L503.6550, L506.1000, L503.0105, L3100.5310, L501.8100, L503.6030, L500.4050, L100.0500, L501.9985 ####[facility] [address] [place], [place], [phone] Vitamin B12on 01-13-2024 Cobalamin (Vitamin B12) [Mass/Vol] 956 pg/mL High 211-911 [facility] Comment on above: Performed By: #### L 500.4100, L503.6550, L506.1000, L503.0105, L3100.5310, L501.8100, L503.6030, L500.4050, L100.0500, L501.9985 #### [facility] [address] [place], [place], [phone] Vitamin D,25 Hydroxyon 01-12 Vitamin D 25-OH 33.3 ng/mL Normal [facility] Comment on above: Result Comment: Geraldine min D 25(OH) Status Range Deficiency <20 ng/mL (50nmol/L) Insufficiency 20 - 30 ng/mL (50 - 75 nmol/L) Sufficiency 30 - 100 ng/mL (75 - 250 nmol/L) Toxicity >100 ng/mL (>250 nmol/L) Performed By: #### L 500.4100, L503.6550, L506.1000, L503.0105, L3100.5310, L501.8100, L503.6030, L500.4050, L100.0500, L501.9985 ####[facility] [address] [place], [place], [phone] Absolute lymphocyte countOrd ered By: Suzy Koehler on 08-04-2023 Lymphocytes Auto (Unsp spec) [#/Vol] 2.35 10*3/uL 0.83-4.51 [facility] Automated lymphocyte count a s percentage of total leukocytesOrdered By: Suzy Koehler on 08-04-2023 Lymphocytes/100 WBC Auto (Unsp spec) 33.0 % 19-41 [facility] Basophil percentageOrdered B y: Suzy Koehler on 08-04-2023 Basophils/100 WBC (Bld) 0.8 % 0-1 [facility] Bilirubin [Mass/Vol] 0.30 mg/dL 0.20-1.00 [facility] Comment on above: For patients on eltr ombopag therapy, use of Dimension Dutton TBIL is not recommended. Chloride [Moles/Vol] 106 mmol/L 98-107 [facility] Cholesterol [Mass/Vol] 206 mg/dL <200 [facility] Comment on above: <200 mg/dL Desirable 200-240 mg/dL Borderline >240 mg/dL High Risk Eosinophils/100 WBC (Bld) 2.5 % 0-5 [facility] Glucose [Mass/Vol] 117 mg/dL 74-106 [facility] Comment on above: Fasting Glucose resu lt from 100 to 125 mg/dL suggests IMPAIRED HOMEOSTASIS per A.D.A. criteria. Hemoglobin (Bld) [Mass/Vol] 14.8 g/dL 12.0-15.0 [facility] Monocytes/100 WBC (Bld) 11.8 % 0-10 [facility] Neutrophils (Bld) [#/Vol] 3.7 10*3/uL 2.0-7.7 [facility] Neutrophils/100 WBC (Bld) 51.8 % 47-70 [facility] Potassium [Moles/Vol] 3.6 mmol/L 3.5-5.1 [facility] Protein [Mass/Vol] 6.7 g/dL 6.4-8.2 [facility] Sodium [Moles/Vol] 142 mmol/L 136-145 [facility] Triglyceride [Mass/Vol] 367 mg/dL <199 [facility] Comment on above: The drugs N-Acetylcy steine and Metamizole may falsely depress this assay.Serum Triglycerides Reference Interval Normal <150 mg/dL Borderline high 150 - 199 mg/dL High 200 - 499 mg/dL Very High > or = 500 mg/dL WBC (Bld) [#/Vol] 7.1 10*3/uL 4.4-11.0 [facility] Determination of erythrocyte mean corpuscular volume (MCV)Ordered By: [facility] on 08-04-2023 MCV (RBC) [Entitic vol] 92.2 fL 81-99 [facility] Erythrocyte distribution wid th ratioOrdered By: [facility] on 08-04-2023 Erythrocyte distribution width (RBC) [Ratio] 11.9 % 11.6-14.6 [facility] Erythrocyte distribution wid th standard deviationOrdered By: [facility] on 08-04-2023 Erythrocyte distribution width (RBC) [Entitic vol] 39.8 fL 35.1-43.9 [facility] Hematocrit Auto (Bld) [Volum e fraction]Ordered By: [facility] on 08-04-2023 Hematocrit (Bld) [Volume fraction] 44.9 % 37-47 [facility] Immature granulocytes/100 WB C Auto (Bld)Ordered By: [facility] on 08-04-2023 Immature granulocytes/100 WBC (Bld) 0.100 % 0.0-0.9 [facility] Comment on above: IG% - Immature Granu locytes (promyelocytes, myelocytes and metamyelocytes) > 1% indicates that a LEFT SHIFT is Present. Laboratory - Chemistry and C hemistry - challengeOrdered By: [facility] on 08-04-2023 Albumin/Globulin [Mass ratio] 1.3 {ratio} 0.9-2.4 [facility] ALP [Catalytic activity/Vol] 59 U/L 45-117 [facility] ALT [Catalytic activity/Vol] 58 U/L 13-56 [facility] Cholesterol in HDL [Mass/Vol] 36 mg/dL >40 [facility] Comment on above: The drugs N-Acetylcy steine and Metamizole may falsely depress this assay. Reference Range HDL <40 mg/dL Low HDL Cholesterol HDL >or= 60 mg/dL High HDL Cholesterol Cholesterol in LDL [Mass/Vol] 97 mg/dL 0-130 [facility] CO2 [Moles/Vol] 29.0 mmol/L 21.0-32.0 [facility] Globulin (S) [Mass/Vol] 2.9 g/dL 2.2-4.2 [facility] Urea nitrogen/Creatinine [Mass ratio] 21.0 mg/mg 10-20 [facility] Laboratory - Hematology and Cell countsOrdered By: Suzy Koehler on 08-04-2023 MCH (RBC) [Entitic mass] 30.4 pg 27.0-32.0 [facility] MCHC (RBC) [Mass/Vol] 33.0 g/dL 32-36 [facility] Nucleated RBC/100 WBC (Bld) [Ratio] 0 % 0-5 [facility] Platelet mean volume (Bld) [Entitic vol] 10.0 fL 6.2-12.0 [facility] Platelets (Bld) [#/Vol] 301 10*3/uL 150-450 [facility] No Panel InformationOrdered By: Suzy Koehler on 08-04-2023 Estimated GFR (MDRD) Amer 103 mL/min >60 [facility] Comment on above: GFR Calc Estimated GFR (MDRD) Non-Af Amer 85 mL/min >60 [facility] Comment on above: Non- GFR Calc VLDL Cholesterol 73 mg/dL 5-40 [facility] RBC Auto (Bld) [#/Vol]Ordere d By: Suzy Koehler on 08-04-2023 RBC (Bld) [#/Vol] 4.87 10*6/uL 4.2-5.4 [facility] Serum or plasma calcium heaven urement (mass/volume)Ordered By: Suzy Koehler on 08-04-2023 Calcium [Mass/Vol] 9.0 mg/dL 8.5-10.1 [facility] Serum or plasma creatinine m easurement (mass/volume)Ordered By: Suzy Koehler on 08-04-2023 Creatinine [Mass/Vol] 0.81 mg/dL 0.55-1.02 [facility] Comment on above: The validity of the calculated GFR & GFRAA in patients over 70 years has not been determined. Clinical correlation is essential. Serum or plasma urea nitroge n measurement (mass/volume)Ordered By: Suzy Koehler on 08-04-2023 Urea nitrogen [Mass/Vol] 17 mg/dL 7-18 [facility] Thin prep Papanicolaou smear with manual screeningOrdered By: Suzy Koehler on 08-04-2023 Thin prep Papanicolaou smear with manual screening 3.8 g/dL 3.2-5.0 [facility] Thin prep Papanicolaou smear with manual screening 21 U/L 15-37 [facility] Thin prep Papanicolaou smear with manual screening 7 5-15 [facility] Whole blood hemoglobin A1c/t otal hemoglobin ratio (mass fraction)Ordered By: Suzy Koehler on 08-04-2023 HbA1c (Bld) [Mass fraction] 5.5 % 3.8-5.6 [facility] Comment on above: Normal < 5.7 % Predi abetic 5.7 - 6.4 % Diabetic >or= 6.5 % Please note range changes. COVID-19, MOLECULARon 2022 SARS-CoV-2 (COVID-19) Ab IA Ql Detected Abnormal Not Detected [facility] Comment on above: Result Comment: Test ing was performed using the [employer] ID NOW COVID-19 assay on the ID NOW platform. This test has not been approved for use in asymptomatic patients and its performance in this patient population has not been evaluated. Negative results do not rule out the presence of SARS-CoV-2/COVID-19. Basophil percentageon 2022 Bilirubin [Mass/Vol] 0.30 mg/dL 0.20-1.00 [facility] Comment on above: For patients on eltr ombopag therapy, use of Dimension Dutton TBIL is not recommended. Chloride [Moles/Vol] 109 mmol/L 98-107 [facility] Cholesterol [Mass/Vol] 182 mg/dL <200 [facility] Comment on above: <200 mg/dL Desirable 200-240 mg/dL Borderline >240 mg/dL High Risk Glucose [Mass/Vol] 93 mg/dL 74-106 [facility] Potassium [Moles/Vol] 4.0 mmol/L 3.5-5.1 [facility] Protein [Mass/Vol] 6.6 g/dL 6.4-8.2 [facility] Sodium [Moles/Vol] 141 mmol/L 136-145 [facility] Testosterone [Mass/Vol] 40 ng/dL 8-60 [facility] Triglyceride [Mass/Vol] 281 mg/dL <199 [facility] Comment on above: The drugs N-Acetylcy steine and Metamizole may falsely depress this assay.Serum Triglycerides Reference Interval Normal <150 mg/dL Borderline high 150 - 199 mg/dL High 200 - 499 mg/dL Very High > or = 500 mg/dL Free testosterone percentage on 12-28-2022 Testosterone Free/Testosterone.tot al [Mass fraction] 3.46 % 0.50-2.80 [facility] Comment on above: Performed at: [facility] [address] [id number] Director: Wes Hoover PhD, Phone: [phone] at: [facility] [id number] Director: Rica Hawkins MD, Phone: [phone] Iron measurement (mass/mass) on 12-28-2022 Iron (Unsp spec) [Mass/Mass] 108 ug/dL 50-170 [facility] Laboratory - Chemistry and C hemistry - challengeon 12-28-2022 ALP [Catalytic activity/Vol] 60 U/L 45-117 [facility] ALT [Catalytic activity/Vol] 63 U/L 13-56 [facility] CO2 [Moles/Vol] 27.0 mmol/L 21.0-32.0 [facility] Cobalamin (Vitamin B12) [Mass/Vol] 832 pg/mL 211-911 [facility] Globulin (S) [Mass/Vol] 3.2 g/dL 2.2-4.2 [facility] Urea nitrogen/Creatinine [Mass ratio] 24.6 mg/mg 10-20 [facility] No Panel Informationon 12-28 Estimated GFR (MDRD) Amer 97 mL/min >60 [facility] Comment on above: GFR Calc Estimated GFR (MDRD) Non-Af Amer 80 mL/min >60 [facility] Comment on above: Non- GFR Calc Thyroid Stimulating Hormone (TSH) 2.64 uIU/mL 0.358-3.74 [facility] Total Iron Binding Capacity 343 ug/dL 250-450 [facility] Valproic Acid (Depakene) Level 68 ug/mL 50-100 [facility] Vitamin D 25-Hydroxy 34.1 ng/mL [facility] Comment on above: Vitamin D 25(OH) Sta tus Range Deficiency <20 ng/mL (50nmol/L) Insufficiency 20 - 30 ng/mL (50 - 75 nmol/L) Sufficiency 30 - 100 ng/mL (75 - 250 nmol/L) Toxicity >100 ng/mL (>250 nmol/L) Serum or plasma albumin heaven urement (mass/volume)on 12-28-2022 Albumin [Mass/Vol] 3.4 g/dL 3.2-5.0 [facility] Serum or plasma albumin/glob ulin mass ratioon 12-28-2022 Albumin/Globulin [Mass ratio] 1.1 {ratio} 0.9-2.4 [facility] Serum or plasma calcium heaven urement (mass/volume)on 12-28-2022 Calcium [Mass/Vol] 8.9 mg/dL 8.5-10.1 [facility] Serum or plasma cholesterol in HDL measurement (mass/volume)on 12-28-2022 Cholesterol in HDL [Mass/Vol] 43 mg/dL >40 [facility] Comment on above: The drugs N-Acetylcy steine and Metamizole may falsely depress this assay. Reference Range HDL <40 mg/dL Low HDL Cholesterol HDL >or= 60 mg/dL High HDL Cholesterol Serum or plasma cholesterol in VLDL measurement (mass/volume)on 12-28-2022 Cholesterol in VLDL [Mass/Vol] 56 mg/dL 5-40 [facility] Serum or plasma creatinine m easurement (mass/volume)on 12-28-2022 Creatinine [Mass/Vol] 0.86 mg/dL 0.55-1.02 [facility] Comment on above: The validity of the calculated GFR & GFRAA in patients over 70 years has not been determined. Clinical correlation is essential. Serum or plasma ferritin owen surement (mass/volume)on 12-28-2022 Ferritin [Mass/Vol] 87 ng/mL 8-252 [facility] Serum or plasma folate measu rement (mass/volume)on 12-28-2022 Folate [Mass/Vol] 37.80 ng/mL 3.1-55.4 [facility] Serum or plasma iron saturat ion measurement (mass fraction)on 12-28-2022 Iron saturation [Mass fraction] 31.5 % 15.0-55.0 [facility] Serum or plasma low density lipoprotein (LDL) cholesterol measurement (mass/volume)on 12-28-2022 Cholesterol in LDL [Mass/Vol] 83 mg/dL 0-130 [facility] Serum or plasma testosterone free measurement (mass/volume)on 12-28-2022 Testosterone Free [Mass/Vol] 1.38 ng/dL 0.10-0.85 [facility] Serum or plasma urea nitroge n measurement (mass/volume)on 12-28-2022 Urea nitrogen [Mass/Vol] 21 mg/dL 7-18 [facility] Thin prep Papanicolaou smear with manual screeningon 12-28-2022 Thin prep Papanicolaou smear with manual screening 26 U/L 15-37 [facility] Thin prep Papanicolaou smear with manual screening 5 5-15 [facility] Whole blood hemoglobin A1c/t otal hemoglobin ratio (mass fraction)on 12-28-2022 HbA1c (Bld) [Mass fraction] 5.5 % 3.8-5.6 [facility] Comment on above: Normal < 5.7 % Predi abetic 5.7 - 6.4 % Diabetic >or= 6.5 % Please note range changes. Basophil percentageOrdered B y: Dr. Burgess on 07-02-2022 Bilirubin [Mass/Vol] 0.30 mg/dL 0.20-1.00 [facility] Comment on above: For patients on eltr ombopag therapy, use of Dimension Dutton TBIL is not recommended. Cholesterol [Mass/Vol] 168 mg/dL <200 [facility] Comment on above: <200 mg/dL Desirable 200-240 mg/dL Borderline >240 mg/dL High Risk Glucose [Mass/Vol] 101 mg/dL 74-106 [facility] Comment on above: Fasting Glucose resu lt from 100 to 125 mg/dL suggests IMPAIRED HOMEOSTASIS per A.D.A. criteria. Protein [Mass/Vol] 6.4 g/dL 6.4-8.2 [facility] Triglyceride [Mass/Vol] 181 mg/dL <199 [facility] Comment on above: The drugs N-Acetylcy steine and Metamizole may falsely depress this assay.Serum Triglycerides Reference Interval Normal <150 mg/dL Borderline high 150 - 199 mg/dL High 200 - 499 mg/dL Very High > or = 500 mg/dL WBC (Bld) [#/Vol] 6.9 10*3/uL 4.4-11.0 [facility] Blood erythrocytes count (nu mber/volume)Ordered By: Dr. Burgess on 07-02-2022 RBC (Bld) [#/Vol] 4.85 10*6/uL 4.2-5.4 [facility] Blood hemoglobin measurement (mass/volume)Ordered By: Dr. Burgess on 07-02-2022 Hemoglobin (Bld) [Mass/Vol] 14.7 g/dL 12.0-15.0 [facility] Blood platelet mean volumeOr dered By: Dr. Burgess on 07-02-2022 Platelet mean volume (Bld) [Entitic vol] 10.4 fL 6.2-12.0 [facility] Determination of erythrocyte mean corpuscular volume (MCV)Ordered By: Dr. Burgess on 07-02-2022 MCV (RBC) [Entitic vol] 94.4 fL 81-99 [facility] Direct bilirubinOrdered By: Dr. Burgess on 07-02-2022 Bilirubin.direct [Mass/Vol] 0.08 mg/dL 0.00-0.30 [facility] Hematocrit Auto (Bld) [Volum e fraction]Ordered By: Dr. Burgess on 07-02-2022 Hematocrit (Bld) [Volume fraction] 45.8 % 37-47 [facility] Laboratory - Chemistry and C hemistry - challengeOrdered By: Dr. Burgess on 07-02-2022 ALP [Catalytic activity/Vol] 51 U/L 45-117 [facility] ALT [Catalytic activity/Vol] 41 U/L 13-56 [facility] Globulin (S) [Mass/Vol] 3.0 g/dL 2.2-4.2 [facility] Laboratory - Hematology and Cell countsOrdered By: Dr. Burgess on 07-02-2022 Erythrocyte distribution width (RBC) [Entitic vol] 42.1 fL 35.1-43.9 [facility] Erythrocyte distribution width (RBC) [Ratio] 12.0 % 11.6-14.6 [facility] MCH (RBC) [Entitic mass] 30.3 pg 27.0-32.0 [facility] MCHC Auto (RBC) [Mass/Vol]Or dered By: Dr. Burgess on 07-02-2022 MCHC (RBC) [Mass/Vol] 32.1 g/dL 32-36 [facility] No Panel InformationOrdered By: Dr. Burgess on 07-02-2022 Valproic Acid (Depakene) Level 70 ug/mL 50-100 [facility] Platelets bldOrdered By: Dr. Burgess on 07-02-2022 Platelets (Bld) [#/Vol] 254 10*3/uL 150-450 [facility] Serum or plasma albumin heaven urement (mass/volume)Ordered By: Dr. Burgess on 07-02-2022 Albumin [Mass/Vol] 3.4 g/dL 3.2-5.0 [facility] Serum or plasma cholesterol in HDL measurement (mass/volume)Ordered By: Dr. Burgess on 07-02-2022 Cholesterol in HDL [Mass/Vol] 46 mg/dL >40 [facility] Comment on above: The drugs N-Acetylcy steine and Metamizole may falsely depress this assay. Reference Range HDL <40 mg/dL Low HDL Cholesterol HDL >or= 60 mg/dL High HDL Cholesterol Serum or plasma cholesterol in VLDL measurement (mass/volume)Ordered By: Dr. Burgess on 07-02-2022 Cholesterol in VLDL [Mass/Vol] 36 mg/dL 5-40 [facility] Serum or plasma low density lipoprotein (LDL) cholesterol measurement (mass/volume)Ordered By: Dr. Burgess on 07-02-2022 Cholesterol in LDL [Mass/Vol] 86 mg/dL 0-130 [facility] Thin prep Papanicolaou smear with manual screeningOrdered By: Dr. Burgess on 07-02-2022 Thin prep Papanicolaou smear with manual screening 12 U/L 15-37 [facility] Basophil percentageOrdered B y: Dr. Burgess on 05-20-2022 Bilirubin [Mass/Vol] 0.40 mg/dL 0.20-1.00 [facility] Comment on above: For patients on eltr ombopag therapy, use of Dimension Dutton TBIL is not recommended. Protein [Mass/Vol] 6.7 g/dL 6.4-8.2 [facility] WBC (Bld) [#/Vol] 8.5 10*3/uL 4.4-11.0 [facility] Blood erythrocytes count (nu mber/volume)Ordered By: Dr. Burgess on 05-20-2022 RBC (Bld) [#/Vol] 4.74 10*6/uL 4.2-5.4 [facility] Blood hemoglobin measurement (mass/volume)Ordered By: Dr. Burgess on 05-20-2022 Hemoglobin (Bld) [Mass/Vol] 14.7 g/dL 12.0-15.0 [facility] Blood platelet mean volumeOr dered By: Dr. Burgess on 05-20-2022 Platelet mean volume (Bld) [Entitic vol] 9.7 fL 6.2-12.0 [facility] Determination of erythrocyte mean corpuscular volume (MCV)Ordered By: Dr. Burgess on 05-20-2022 MCV (RBC) [Entitic vol] 92.4 fL 81-99 [facility] Direct bilirubinOrdered By: Dr. Burgess on 05-20-2022 Bilirubin.direct [Mass/Vol] 0.14 mg/dL 0.00-0.30 [facility] Hematocrit Auto (Bld) [Volum e fraction]Ordered By: Dr. Burgess on 05-20-2022 Hematocrit (Bld) [Volume fraction] 43.8 % 37-47 [facility] Laboratory - Chemistry and C hemistry - challengeOrdered By: Dr. Burgess on 05-20-2022 ALP [Catalytic activity/Vol] 69 U/L 45-117 [facility] ALT [Catalytic activity/Vol] 35 U/L 13-56 [facility] Globulin (S) [Mass/Vol] 3.0 g/dL 2.2-4.2 [facility] Laboratory - Hematology and Cell countsOrdered By: Dr. Burgess on 05-20-2022 Erythrocyte distribution width (RBC) [Entitic vol] 41.2 fL 35.1-43.9 [facility] Erythrocyte distribution width (RBC) [Ratio] 12.0 % 11.6-14.6 [facility] MCH (RBC) [Entitic mass] 31.0 pg 27.0-32.0 [facility] MCHC Auto (RBC) [Mass/Vol]Or dered By: Dr. Burgess on 05-20-2022 MCHC (RBC) [Mass/Vol] 33.6 g/dL 32-36 [facility] No Panel InformationOrdered By: Dr. Burgess on 05-20-2022 Valproic Acid (Depakene) Level 44 ug/mL 50-100 [facility] Platelets bldOrdered By: Dr. Burgess on 05-20-2022 Platelets (Bld) [#/Vol] 340 10*3/uL 150-450 [facility] Serum or plasma albumin heaven urement (mass/volume)Ordered By: Dr. Burgess on 05-20-2022 Albumin [Mass/Vol] 3.7 g/dL 3.2-5.0 [facility] Thin prep Papanicolaou smear with manual screeningOrdered By: Dr. Burgess on 05-20-2022 Thin prep Papanicolaou smear with manual screening 10 U/L 15-37 [facility] Replaced Document: (P) PAP I -G w/rfx hrHPVon 02-04-2017 GE use only - for LinkLogic import when terms are not otherwise specified Comment Invalid Interpretation Code . [facility] [place] Office Visit: new annualon 0 02-01-2017 Documentation of current medications (procedure) Done Invalid Interpretation Code [facility] Fall risk assessment No Invalid Interpretation Code [facility] [place] Hemoglobin presence in stool not done Invalid Interpretation Code [facility] [place] Tobacco smoking status NHIS Never Invalid Interpretation Code [facility] [place] Tobacco use CPHS Never smoker Invalid Interpretation Code [facility] [place] Office Visit: New Pt. Visito n 12-31-2016 Documentation of current medications (procedure) Done Invalid Interpretation Code [facility] Work Phone: Fall risk assessment No Invalid Interpretation Code [facility] Work Phone: Protein mass conc Done [facility] Work Phone: [phone] Tobacco smoking status NHIS Never smoker [facility] Work Phone: [phone] Tobacco use CPHS Never smoker Invalid Interpretation Code [facility] Work Phone: [phone] Vital Signs Date Time Vital Sign Value Performing Clinician Sav tate 08-06-2024 13:09-0400 Body height 167.[address] Suzy Koehler MD Work Phone: [facility] 08-06-2024 13:09-0400 Body mass index (BMI) [Ratio] 32.5 kg/m2 Dr. Suzy Koehler MD Work Phone: [facility] 08-06-2024 13:09-0400 Body temperature 97.4 [degF] Dr. Suzy Koehler MD Work Phone: [facility] 08-06-2024 13:09-0400 Body weight 91.[address] Suzy Koehler MD Work Phone: [facility] 08-06-2024 13:09-0400 Diastolic blood pressure 96 mm[Hg] Dr. Suzy Koehler MD Work Phone: [facility] 08-06-2024 13:09-0400 Heart rate 103 /min Dr. Suzy Koehler MD Work Phone: [facility] 08-06-2024 13:09-0400 Respiratory rate 18 /min Dr. Suzy Koehler MD Work Phone: [facility] 08-06-2024 13:09-0400 SaO2% (BldA) [Mass fraction] 99 % Dr. Suzy Koehler MD Work Phone: [facility] 08-06-2024 13:09-0400 Systolic blood pressure 126 mm[Hg] Dr. Suzy Koehler MD Work Phone: [facility] 10-14-2023 14:43-0400 Body height 164.5 cm Maria R Arora APRN.[employer] Work Phone: [facility] 10-14-2023 14:43-0400 Body mass index (BMI) [Ratio] 33.87 kg/m2 Maria R Arora [employer] Work Phone: [facility] 10-14-2023 14:43-0400 Body weight 91.63 kg Maria R Arora [employer] Work Phone: [facility] 10-14-2023 14:43-0400 Diastolic blood pressure 86 mm[Hg] Maria R Arora [employer] Work Phone: [facility] 10-14-2023 14:43-0400 Systolic blood pressure 134 mm[Hg] Maria R Arora [employer] Work Phone: [facility] 08-04-2023 14:49-0500 Body height 167.[address] Suzy Koehler Work Phone: [facility] 08-04-2023 14:49-0500 Body mass index (BMI) [Ratio] 32.1 kg/m2 Dr. Suzy Koehler Work Phone: [facility] 08-04-2023 14:49-0500 Body temperature 97.2 [degF] Dr. Suzy Koehler Work Phone: [facility] 08-04-2023 14:49-0500 Body weight 90.[address] Suzy Koehler Work Phone: [facility] 08-04-2023 14:49-0500 Diastolic blood pressure 72 mm[Hg] Dr. Suzy Koehler Work Phone: [facility] 08-04-2023 14:49-0500 Heart rate 91 /min Dr. Suzy Koehler Work Phone: [facility] 08-04-2023 14:49-0500 Respiratory rate 16 /min Dr. Suzy Koehler Work Phone: [facility] 08-04-2023 14:49-0500 SaO2% (BldA) [Mass fraction] 99 % Dr. Suzy Koehler Work Phone: [facility] 08-04-2023 14:49-0500 Systolic blood pressure 118 mm[Hg] Dr. Suzy Koehler Work Phone: [facility] 04-28-2023 13:55-0500 Body temperature 97.2 [degF] Dr. Suzy Koehler Work Phone: [facility] 04-28-2023 13:55-0500 Diastolic blood pressure 82 mm[Hg] Dr. Suzy Koehler Work Phone: [facility] 04-28-2023 13:55-0500 Heart rate 110 /min Dr. Suzy Koehler Work Phone: [facility] 04-28-2023 13:55-0500 Respiratory rate 16 /min Dr. Suzy Koehler Work Phone: [facility] 04-28-2023 13:55-0500 SaO2% (BldA) [Mass fraction] 97 % Dr. Suzy Koehler Work Phone: [facility] 04-28-2023 13:55-0500 Systolic blood pressure 136 mm[Hg] Dr. Suzy Koehler Work Phone: [facility] 04-28-2023 13:54-0500 Body mass index (BMI) [Ratio] 31.6 kg/m2 Dr. Suzy Koehler Work Phone: [facility] 04-28-2023 13:54-0500 Body weight 89.[address] Suzy Koehler Work Phone: [facility] 04-14-2023 11:10-0500 Body weight 88.45 kg Maria R Arora APRN.CNP Work Phone: [facility] 04-14-2023 11:10-0500 Diastolic blood pressure 98 mm[Hg] Maria R Arora [employer] Work Phone: [facility] 04-14-2023 11:10-0500 Systolic blood pressure 130 mm[Hg] Maria R Arora [employer] Work Phone: [facility] 10-12-2022 08:33-0400 Body weight 88.09 kg Maria R Arora [employer] Work Phone: [facility] 10-12-2022 08:33-0400 Diastolic blood pressure 84 mm[Hg] Maria R Arora [employer] Work Phone: [facility] 10-12-2022 08:33-0400 Systolic blood pressure 132 mm[Hg] Maria R Arora [employer] Work Phone: [facility] 02-01-2017 10:42-0400 BMI (Body Mass Index) 30.76 kg/m2 Vani Loera MD [facility] 02-01-2017 10:42-0400 Body Temperature 97.5 [degF] Vani Loera MD [facility] 02-01-2017 10:42-0400 BP Diastolic 78 mm[Hg] Vani Loera MD [facility] 02-01-2017 10:42-0400 BP Systolic 117 mm[Hg] Vani Loera MD [facility] 02-01-2017 10:42-0400 Height 166.37 cm Vani Loera MD [facility] 02-01-2017 10:42-0400 Pulse (Heart Rate) 84 /min Vani Loera MD [facility] 02-01-2017 10:42-0400 Respiratory Rate 16 /min Vani Loera MD [facility] 02-01-2017 10:42-0400 Weight 85.14 kg Vani Loera MD [facility] 12-31-2016 09:22-0400 BMI (Body Mass Index) 30.82 kg/m2 Suzy Koehler MD [facility] Work Phone: 12-31-2016 09:22-0400 Body Temperature 98.6 [degF] Suzy Koehler MD [facility] Work Phone: 12-31-2016 09:22-0400 BP Diastolic 87 mm[Hg] Suzy Koehler MD [facility] Work Phone: 12-31-2016 09:22-0400 BP Systolic 130 mm[Hg] Suzy Koehler MD [facility] Work Phone: 12-31-2016 09:22-0400 Height 165.1 cm Suzy Koehler MD [facility] Work Phone: 12-31-2016 09:22-0400 Pulse (Heart Rate) 87 /min Suzy Koehler MD [facility] Work Phone: 12-31-2016 09:22-0400 Weight 84.03 kg Suzy Koehler MD [facility] Work Phone: Encounters Encounter Date Encounter Type Care Provider Facility Start: 10-19-2024 End: 10-19-2024 ambulatory SUZY KOEHLER Facility:[facility] Start: 10-19-2024 Encounter for gynecological examination (general) (routine) without abnormal findings CHIARA TAMAYO [facility] Start: 09-15-2024 End: 09-15-2024 ambulatory Suzy Koehler Facility:[facility] Start: 08-06-2024 End: 08-06-[address] Suzy Koehler MD -[facility] Work Phone: Start: 08-06-2024 End: 08-06-2024 ambulatory Suzy Koehler Facility:[facility] Start: 07-27-2024 End: 07-27-[address] Suzy Koehler MD Work Phone: [facility] Work Phone: Start: 07-27-2024 End: 07-27-[address] Suzy Koehler MD -[facility] Start: 07-27-2024 End: 07-27-2024 ambulatory [facility] Facility:[facility] Start: 04-30-2024 End: 04-30-2024 Refill Elisha Leone APRN.CNM Work Phone: OB/Gynecology Comment on above: Refill Request Start: 02-06-2024 End: 02-06-2024 ambulatory [facility] Facility:[facility] [place] [place] Start: 01-13-2024 End: 01-13-2024 ambulatory [facility] Facility:[facility] Start: 10-14-2023 End: 10-14-2023 Patient encounter procedure Maria R Arora APRN.[facility] Work Phone: OB/Gynecology Comment on above: Encounter for gyneco logical examination with abnormal finding (Primary Dx); PCOS (polycystic ovarian syndrome); Urinary urgency; Urinary frequency; Chafing Start: 10-14-2023 End: 10-14-2023 Patient encounter status Maria R Arora APRN.[employer] Work Phone: [facility] Work Phone: Start: 08-04-[address] Angela Koehler Work Phone: [facility] Start: 08-04-2023 End: 08-04-[address] Suzy Koehler Work Phone: [facility] Work Phone: Start: 08-04-2023 End: 08-04-2023 Encounter for general adult medical examination without abnormal findings Dr. Suzy Koehler Work Phone: [facility] Start: 08-04-2023 End: 08-04-[address] Suzy Koehler Work Phone: [facility] Work Phone: Start: 04-28-2023 End: 04-28-[address] Suzy Koehler Work Phone: [facility] Work Phone: Start: 04-14-2023 End: 04-14-2023 Patient encounter procedure Maria R Arora APRN.[facility] Work Phone: OB/Gynecology Comment on above: PCOS (polycystic ova cheryl syndrome) (Primary Dx); Irregular menstrual cycle; Encounter for BCP ( control pills) initial prescription; Weight gain due to medication Start: 03-17-2023 End: 03-17-2023 Emergency department patient visit SUZY MARTINEZ [facility] Start: 01-21-2023 End: 01-21-2023 ambulatory [facility] Work Phone: Start: 01-21-2023 End: 01-21-2023 Patient encounter procedure [facility]-Pulmonary Services/Neurology Work Phone: Start: 12-28-2022 End: 12-28-2022 Patient encounter procedure [facility] Start: 10-12-2022 End: 10-12-2022 Patient encounter procedure Maria R Arora APRN.[employer] Work Phone: OB/Gynecology Comment on above: Encounter for gyneco logical examination (general) (routine) without abnormal findings (Primary Dx); PCOS (polycystic ovarian syndrome); Weight gain due to medication; Class 1 obesity with serious comorbidity and body mass index (BMI) of 32.0 to 32.9 in adult, unspecified obesity type; Screening for cervical cancer; Special screening examination for human papillomavirus (HPV) Start: 10-12-2022 End: 10-12-2022 Patient encounter status Maria R Arora APRN.[employer] Work Phone: OB/Gynecology Start: 07-02-2022 End: 07-02-2022 ambulatory [facility] Work Phone: Start: 07-02-2022 End: 07-02-2022 Patient encounter procedure [facility] Start: 05-20-2022 End: 05-20-2022 ambulatory [facility] Work Phone: Start: 05-20-2022 End: 05-20-2022 Patient encounter procedure [facility] Procedures Date Procedure Procedure Detail Performing Clinician Start: 12-31-2016 Thyroid disorder screening Screening for thyroid disorder Suzy Koehler MD Plan of Treatment Date Care Activity Detail Author Start: 10-13-2027 HPV Testing HPV Testing [facility] Start: 10-13-2027 Pap Testing Pap Testing [facility] Start: 10-13-2027 Screening for malign ant neoplasm of cervix [facility] Start: 10-19-2024 End: 10-19-2024 Patient encounter procedure 10/19/2024 3:00 PM EDT Office Visit OB/Gynecology [address] [place] [address] Maria R Arora APRN.[facility] [address] [place] [address] annual OB/Gynecology Comment on above: annual Start: 01-29-2024 Covid-19 Vaccine () Covid-19 Vaccine () [facility] Start: 01-29-2024 Influenza vaccination [facility] Start: 10-14-2023 End: 01-13-2024 Bacteria identified in Urine by Culture URINE CULTURE Microbiology Routine Urinary urgency Urinary frequency Expected: 10/14/2023, Expires: 01/13/2024 [facility] Comment on above: Expected: 10/14/2023 , Expires: 01/13/2024 Start: 10-14-2023 End: 01-13-2024 Urinalysis complete panel - Urine URINALYSIS, WITH MICROSCOPIC Lab Routine Urinary urgency Urinary frequency Expected: 10/14/2023, Expires: 01/13/2024 [facility] Work Phone: Comment on above: Expected: 10/14/2023 , Expires: 01/13/2024 Start: 05-30-2023 Behavioral Health Screening Behavioral Health Screening [facility] Start: 01-28-2023 Covid-19 Vaccine () Covid-19 Vaccine () [facility] Start: 01-28-[address] [facility] Start: 05-30-2022 DEPRESSION ASSESSMENT DEPRESSION ASS ESSMENT [facility] Start: 02-08-2018 Urine microalbumin profile [facility] Start: 07-01-2017 End: 07-01-2017 Appointment Appointment [facility] Work Phone: Start: 2017 HPV TESTING HPV TESTING [facility] Start: 02-01-2017 End: 02-01-2017 Appointment Appointment [facility] Work Phone: Start: 12-31-2016 End: 12-31-2016 Appointment Appointment [facility] Work Phone: Start: 12-31-2016 End: 12-31-2016 *BMP *BMP [facility] Work Phone: Start: 12-31-2016 End: 12-31-2016 *CBC with Differential *CBC with Differential [facility] Work Phone: Start: 12-31-2016 End: 12-31-2016 Follow Up Appt 6 months Follow Up Appt 6 months [facility] Work Phone: Start: 12-31-2016 End: 12-31-2016 Gynecology & Obstetrics Gynecology & Obstetrics [facility] Work Phone: Start: 12-31-2016 End: 12-31-2016 HbA1c *HgA1C [facility] Work Phone: Start: 12-31-2016 End: 12-31-2016 Lipid panel [AGGREGATE] *Lipid Profile [facility] Work Phone: Start: 12-31-2016 End: 12-31-2016 Thyroid stimulating hormone (TSH) *TSH [facility] Work Phone: Start: 12-31-2016 End: 12-31-2016 Thyroxine (T4) free *T4 free [facility] Work Phone: Start: 2008 PAP TESTING PAP TESTING [facility] Start: 2006 Hepatitis B Vaccine (1 of 3 - 19+ 3-dose series) Hepatitis B Vaccine (1 of 3 - 19+ 3-dose series) [facility] Start: 2005 Anxiety Screening Anxiety Screening [facility] Start: 2005 Depression Screening Depression Scre ening [facility] Start: 2005 HEPATITIS C SCREENING HEPATITIS C [facility] Start: 2005 Hepatitis C screening Hepatitis C [facility] Start: 2005 HIV SCREENING HIV SCREENING [facility] Start: 2005 HIV screening HIV Screening [facility] Start: 1987 COVID-19 VACCINE (#1) COVID-19 VACCI NE (#1) [facility] Start: 1987 HEPATITIS B (1 of 3 - 3-dose series) HEPATITIS B (1 of 3 - 3-dose series) [facility] Start: 1987 Hepatitis B Vaccine (1 of 3 - 3-dose series) Hepatitis B Vaccine (1 of 3 - 3-dose series) [facility] CBC W Auto Different ial panel - Blood [facility] Cobalamin (Vitamin B 12) [Mass/volume] in Serum or Plasma [facility] Comprehensive metabo lic 1999 panel - Serum or Plasma [facility] Hemoglobin A1c/Hemoglobin.total in Blood [facility] Lipid 1995 panel - Serum or Plasma [facility] PAP TEST PAP TEST Lab [facility] Encounter for gynecological examination (general) (routine) without abnormal findings Screening for cervical cancer Special screening examination for human papillomavirus (HPV) 10/12/2022 9:18 AM EDT [facility] Work Phone: [facility] Immunizations Immunization Date Immunization Notes Care Provider Fa enoch 03-21-2020 influenza, injectable,quadrivalent , preservative free, pediatric [facility] 03-21-2020 influenza virus vaccine, unspecified formulation Maria R Arora APRN.CNP Work Phone: [facility] 02-09-2008 tetanus toxoid, redu derek diphtheria toxoid, and acellular pertussis vaccine, adsorbed Maria R Arora APRN.CNP Work Phone: [facility] Work Phone: Payers Date Payer Category Payer Self-pay [id number] 2023 Private Health Insurance [facility] [id number] 2018 Medicaid MEDICAID [facility] MEDICAID [id number] 2018-Present [phone] [address] [place] [address] Medicaid [id number] 2018 Medicaid [id number] 2017 Medicare [id number] 2017 Medicare [id number] 2016 Unknown [facility] [id number] 1987 Unknown [id number] Unknown [id number] Unknown [id number] Unknown [id number] Unknown [id number] Unknown [id number] Social History Date Type Detail Facility Start: 07-17-2021 End: 08-04-2023 Tobacco smoking status MOIS Unknown if ever smoked [facility] Start: 1985 Sex Assigned At Female [facility] Start: 01-28-2012 End: 08-04-2023 Tobacco smoking status NHIS Never smoked tobacco [facility] Start: 01-28-2012 Tobacco use and exposure Smokeless tobacco non-user [facility] Start: 10-12-2022 End: 10-14-2023 Alcohol intake Current non-drinker of alcohol (finding) [facility] Start: 1987 Sex Assigned At Not on file [facility] Start: 10-12-2022 End: 04-14-2023 History of Social function [facility] Start: 10-12-2022 End: 04-14-2023 Tobacco use panel [facility] National Score (1-100), lower number is lower risk 60 [facility] Start: 08-09-2024 Sex Female (finding) [facility] Clinical Notes 02-09-2008 to 10-19-2024 Note Date & Type Note Facility 10-19-2024 Note HNO ID: [id number] Author: CHIARA TAMAYO APRN.CNM Service: ? 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 Na is a 39 year old who presents for an annual gynecologic exam without complaints. Still get period: No, norethindrone daily Sexually active: No HPV vaccine: No HPV:negative, 10/12/2022 Last pap smear: 10/12/2022, normal History of abnormal pap: No OB History Gravida0 Para0 Term0 Preterm0 AB0 Living0 SAB0 IAB0 Ectopic0 Multiple0 Live Births0 Sex Therapist History LMP: 09/26/2022 (Approximate), Drug Induced Amenorrhea Age at Menarche: Age at First : Age at Menopause: Sex Therapist History Comments: Sexual Activity: Never; Male Contraception: No contraception data on record PAST MEDICAL HISTORY Diagnosis Date Adjustment disorder with depressed mood Psychiatry Dr Pastor Burgess Essential hypertension Hyperlipemia Irregular menstrual cycle PCOS (polycystic ovarian syndrome) Schizoaffective disorder (HCC) Dr Burgess PAST SURGICAL HISTORY Procedure Laterality Date NONE FAMILY HISTORY Problem Relation Age of Onset None Mother None Father No Known Problems Sister No Known Problems Sister No Known Problems Brother SOCIAL HISTORY Social History Tobacco Use Smoking status: Never Smokeless tobacco: Never Vaping Use Vaping status: Never Used Substance Use Topics Alcohol use: No Drug use: No REVIEW OF SYSTEMS Abdomen: No abdominal pain, nausea, vomiting, diarrhea, or constipation. No bloating, early satiety, indigestion, or increased flatulence. Bladder: No dysuria, gross hematuria, urinary frequency, urinary urgency, or incontinence. Breast: No breast lumps, nipple d/c, overlying skin changes, redness or skin retraction. Allergies and current medication updated:Yes SENSITIVE EXAM: The sensitive examination was discussed with the Patient or Patient's Authorized Avionics Systems Technician. As applicable, any other physician, advance practice provider, medical student, or other health professional student that will be observing or involved in the sensitive examination for educational or training purposes was discussed with the Patient or Authorized Avionics Systems Technician. The Patient or Authorized Avionics Systems Technician has agreed to proceed with the sensitive examination. (Sensitive examination includes inspection and/or palpation of the breasts, pelvis, prostate and anorectal regions). EXAM: BP 126/88 Wt 205 lb 12.8 oz (93.4kg) LMP 09/26/2022 GENERAL: pleasant, female in no apparent distress HEENT: Normocephalic and atraumatic NECK: Supple and full range of motion DERMATOLOGY: Normal BREAST: soft, non-tender, symmetric, no dominant mass, normal nipple-areolar complex, no lymphadenopathy, no nipple discharge, and fibrocystic changes CHEST: Normal inspiratory effort ABDOMEN: soft, non-tender, and no masses PELVIC: no vulvar lesions, no cervical lesions, good vaginal support, physiologic discharge present BIMANUAL: uterus normal size, shape and consistency, no adnexal masses, non-tender, and no cervical motion tenderness RECTOVAGINAL: deferred. NEURO: alert and oriented x3,exam grossly non-focal EXTREMITIES: normal ASSESSMENT/PLAN: 1) Health maintenance: Pap/HPV up to date. 2) Contraception: n/a not sexually active. 3) Continue norethindrone daily 4) Mammogram screenings to start at age 40 Follow up one year or sooner as needed Chiara Tamayo APRN.ANAHY [facility] 08-06-2024 Evaluation note Diagnosis Onset Date Resolution Borderline type 2 diabetes mellitus acute August 06 12:58pm Hyperlipidemia chronic July 12:58pm Hypertension chronic August 06, 2024 12:58pm Dysfunctional uterine bleeding resolved August 06, 2024 12:58pm [facility] Work Phone: 1(705) 668-973912-02-2024 Telephone encounter Note* Telephone Encounter - Poly Harris LPN - 04/30/2024 9:03 AM EST Opened in error [facility]12-02-2024 Miscellaneous Notes* Telephone Encounter - Poly Harris LPN - 04/30/2024 9:03 AM EST Opened in error [facility] Telephone encounter Note * Telephone Encounter - Poly Harris LPN - 04/30/2024 8:52 AM EST Patient had yearly exam 09/2023 with Maria R Arora. Called requesting refill of norethindrone. Takes for birthcontrol. [facility]12-02-2024 Miscellaneous Notes* Telephone Encounter - Poly Harris LPN - 04/30/2024 8:52 AM EST Patient had yearly exam 09/2023 with Maria R Arora. Called requesting refill of norethindrone. Takes for birthcontrol. [facility] Note* Addendum Note - Maria R Arora APRN.[facility] - 10/14/2023 5:02 PM EDTAddended by: MARIA R ARORA on: 10/14/2023 05:02 PM Modules accepted: Orders [facility]05-17-2024 Miscellaneous Notes* Addendum Note - Maria R Arora APRN.CNP - 10/14/2023 5:02 PM EDTAddended by: MARIA R ARORA on: 10/14/2023 05:02 PM Modules accepted: Orders [facility] Instructions* Patient Instructions* Maria R Arora APRN.CNP - 10/14/2023 4:04 PM EDT To avoid chafing and rubbing: Better fitting underwear [employer] [facility] History of Present illness Narrative* Maria R Arora APRN.CNP - 10/14/2023 2:43 PM EDT Na is a 38 year old who presents for an annual gynecologic exam with complaints, urinaryurgency and frequency for past 2 weeks. No dysuria, blood in urine, back pain or fever, . PCOS - metformin Menses: no menses on POP Contraception: norethindrone daily HPV vaccine: No Last Pap: 10/12/2022 normal HPV: unknown History of abnormal pap: No Last mammogram: never Sexually active: never History of PCOS: Yes Documentation from previous visit of 10/12/2022 was copied and pasted, documentation has been reviewed and edited as necessary for today's visit. OB History T0 L0 SAB0 IAB0 Ectopic0 Multiple0 Live Births0 Sex Therapist History LMP: 09/26/2022 (Approximate), Drug Induced Amenorrhea Age at Menarche: Age at First : Age at Menopause: Sex Therapist History Comments: Sexual Activity: Never; Male Contraception: No contraception data on record PAST MEDICAL HISTORY Diagnosis Date Adjustment disorder with depressed mood Psychiatry Dr Pastor Burgess Essential hypertension Hyperlipemia Irregular menstrual cycle PCOS (polycystic ovarian syndrome) Schizoaffective disorder (HCC) Dr Burgess PAST SURGICAL HISTORY Procedure Laterality Date NONE FAMILY HISTORY Problem Relation Age of Onset None Mother None Father No Known Problems Sister No Known Problems Sister No Known Problems Brother SOCIAL HISTORY Social History Tobacco Use Smoking status: Never Smokeless tobacco: Never Vaping Use Vaping Use: Never used Substance Use Topics Alcohol use: No Drug use: No REVIEW OF SYSTEMS Abdomen: No abdominal pain, nausea, vomiting, diarrhea, or constipation. No bloating, early satiety, indigestion, or increased flatulence. Bladder: Positive for urinary frequency, urinary urgency. See HPI. No dysuria, gross hematuria, or incontinence Breast: No breast lumps, nipple d/c, overlying skin changes, redness or skin retraction. Allergies and current medication updated:Yes EXAM: BP 134/86 Ht 5' 4.75 (1.65m) Wt 202 lb (91.6kg) LMP 09/26/2022 BMI 33.86 kg/(m^2). GENERAL: pleasant, female in no apparent distress HEENT: Normocephalic, atraumatic, mucus membranes moist, and no lesions NECK: Supple, full range of motion, no adenopathy, and thyroid normal DERMATOLOGY: Normal, without lesions, non-icteric, and hirsute BREAST: soft, non-tender, symmetric, no dominant mass, normal nipple-areolar complex, no lymphadenopathy, and no nipple discharge CHEST: Normal inspiratory effort ABDOMEN: soft, non-tender, and no masses PELVIC: external genitalia normal, normal Bartholin's glands, urethra, Triana's glands, no vulvar lesions, no cervical lesions, good vaginal support, physiologic discharge present, normal appearing perineal body and perianal region, Dark red chafing to gluteal fold, inner thighs, and outer vulva. BIMANUAL: uterus normal size, shape and consistency, no adnexal masses, and non-tender RECTOVAGINAL: deferred. NEURO: alert and oriented x3,exam grossly non-focal EXTREMITIES: normal ASSESSMENT/PLAN: 1) Health maintenance: Pap/HPV up to date. Mammogram starting age 40. Nutrition, exercise and routine health maintenance exams reviewed. 2. PCOS (polycystic ovarian syndrome) - ICD9: 256.4, ICD10: E28.2 - continue metformin - continue POP for management of irregular menses 3. Urinary urgency - ICD9: 788.63, ICD10: R39.15 - unable to void in office - lab orders placed - URINALYSIS, WITH MICROSCOPIC - URINE CULTURE 4. Urinary frequency - ICD9: 788.41, ICD10: R35.0 - URINALYSIS, WITH MICROSCOPIC - URINE CULTURE 5. Chafing - ICD9: 709.8, ICD10: L30.4 - encouraged better fitting underwear to avoid chafing. - [employer] 6) STD screening: Declined STD check. 7) Follow up one year or sooner as needed Maria R Arora APRN.CNP Medical Decision Making: Problems: Moderate: New problem with uncertain prognosis Data: Unique test(s) ordered: 2 Medical Decision Making Level: 3 - Low [facility]11[facility] Instructions* Patient Instructions* Maria R Arora APRN.CNP - 04/14/2023 11:[address] Koehler's office and let her know you stopped the hydrochlorothiazide. BP 130/98 Metformin - take one tablet with either breakfast or lunch and the second tablet with dinner. Micronor (norethindrone) every day with your bedtime medications. documented in [facility] encounterPe[facility]11-16-[facility]23 History of Present illness Narrative* Maria R Arora APRN.CNP - 04/14/2023 11:07 AM EST Stephen Baum is a 38 year old female who presents for problem visit PCOS metformin follow-up HPI: Taking metformin some days with supper but forgets to take it many days. Did not remember thatshe should take it twice a day. No side effects. Does remember to take her nighttime medications every day. Unsure when she last had a menses but it may be 3-6 months ago. Stopped HCTZ due to frequent urination - Dr Koehler is unaware. OB History T0 L0 SAB0 IAB0 Ectopic0 Multiple0 Live Births0 Sex Therapist History LMP: 09/26/2022 (Approximate), Having periods Age at Menarche: Age at First : Age at Menopause: Sex Therapist History Comments: Sexual Activity: Never; Male Contraception: No contraception data on record PAST MEDICAL HISTORY Diagnosis Date Adjustment disorder with depressed mood Psychiatry Dr Pastor Burgess Essential hypertension Hyperlipemia Irregular menstrual cycle PCOS (polycystic ovarian syndrome) Schizoaffective disorder (HCC) Dr Burgess PAST SURGICAL HISTORY Procedure Laterality Date NONE FAMILY HISTORY Problem Relation Age of Onset None Mother None Father Social History Tobacco Use Smoking status: Never Smokeless tobacco: Never Vaping Use Vaping Use: Never used Substance Use Topics Alcohol use: No Drug use: No Current Outpatient Medications Medication Sig hydroCHLOROthiazide 12.5 mg tablet every morning. divalproex DR (DEPAKOTE) 500 mg EC tablet Take 500 mg by mouth twice daily. metFORMIN (GLUCOPHAGE) 500 mg tablet Take 1 tablet by mouth twice daily with meals. atorvastatin (LIPITOR) 40 mg tablet Take 1 tablet by mouth once daily. lurasidone (LATUDA) 80 mg tablet Take 1 tablet by mouth once daily. ARIPiprazole (ABILIFY) 30 mg tablet Take 15 mg by mouth twice daily. MULTIVIT WITH CALCIUM,IRON,MIN (WOMEN'S MULTIPLE VITAMINS ORAL) Take by mouth once daily. modafinil (PROVIGIL) 200 mg tablet Take 1 tablet by mouth once daily. citalopram hydrobromide(CELEXA 20 MG TAB) Take one(1) tablet daily. pt takes at hs No current facility-administered medications for this visit. Allergies As of Date: 04/14/2023 Allergen Noted Reaction CIPRO [CIPROFLOXACIN] 08/05/2005 Rash and Hives Fully Assessed 10/12/2022 REVIEW OF SYSTEMS Allergies and current medication updated:Yes EXAM: BP 130/98 Wt 195 lb (88.5kg) LMP 09/26/2022 GENERAL: pleasant, female in no apparent distress CHEST: Normal inspiratory effort NEURO: alert and oriented x3,exam grossly non-focal ASSESSMENT/PLAN: 1. PCOS (polycystic ovarian syndrome) - ICD9: 256.4, ICD10: E28.2 (primary diagnosis) - NORETHINDRONE (CONTRACEPTIVE) 0.35 MG TABLET - METFORMIN 500 MG TABLET 2. Irregular menstrual cycle - ICD9: 626.4, ICD10: N92.6 - NORETHINDRONE (CONTRACEPTIVE) 0.35 MG TABLET - see #3 3. Encounter for BCP ( control pills) initial prescription - ICD9: V25.01, ICD10: Z30.011 - RX for Micronor given today. - discussed with patient on how to take POP. She plans to take it every bedtime with her other medications because she remembers to take those daily. - counseled on benefits, risks and possible severe side effects of OCP's. - discussed need to use Condoms to help to prevent STD's including HIV etc. - NORETHINDRONE (CONTRACEPTIVE) 0.35 MG TABLET 4. Weight gain due to medication - ICD9: 783.9, E947.9, ICD10: R63.5, T50.905A - trying to eat healthier diet - encouraged. - METFORMIN 500 MG TABLET Follow-up at annual exam in 6 months. Maria R Arora APRN.CNP Medical Decision Making: Problems: Moderate: 1+ chronic illnesses with change Risk: Moderate: Drug management and Moderate risk from testing/treatment Medical Decision Making Level: 4 - Moderate documented in [facility] encounterPe[facility]05-16-[facility]23 Instructions* Patient Instructions* Maria R Arora APRN.CNP - 10/12/2022 9:03 AM EDT METFORMIN Dosing -- Begin Metformin 500 mg with dinner daily for 1-4 weeks. If tolerating, you can increase to 2 tablets with dinner daily. Taking the medication with food will help. -- if you experience any GI upset (Nausea, diarrhea, bloating, gas) you can go back to 1 tablet or hold the medication until it resolves. Once you are tolerating the medication you can try increasingit again. -- we can discuss increasing the dose further at your follow up visit. -- Metformin can interfere with the absorption of B12 in your food, please add a B12 supplement Poppy suggest having it checked every 1-2 years Using Metformin for weight loss: Metformin helps to lower blood glucose levels by reducing the amount of glucose produced and released by the liver, and by increasing insulin sensitivity. It has now been proven to prevent or delay diabetes. Metformin and Type 2 Diabetes Prevention Diabetes Spectrum (diabetesjournals.org) Large cohort studies have shown weight loss benefits associated with metformin therapy. Emerging evidence suggests that metformin-associated weight loss is due to modulation of hypothalamic appetite-regulatory centers, alteration in the gut microbiome, and reversal of consequences of aging. Metformin is also being explored in the management of obesity s sequelae such as hepatic steatosis, obstructive sleep apnea and osteoarthritis. Effectiveness of metformin on weight loss in non-diabetic individuals with obesity - PubMed (nih.gov) Is metformin a wonder drug? - [facility] Common side effects of this medication include nausea, changes in bowel habits, abdominal discomfort, and flatulence. Taking the medication with food will help. Side effects also typically get betterwith time. Rarely, a severe side effect called lactic acidosis can occur. If you experience malaise, muscle aches, difficulty breathing, or severe abdominal pain, please seek immediate medical attention. Metformin: Patient drug information Warning Rarely, metformin may cause too much lactic acid in the blood (lactic acidosis). The risk is higherin people who have kidney problems, liver problems, heart failure, use alcohol, or take other drugslike topiramate. The risk is also higher in people who are 65 or older and in people who are havingsurgery, an exam or test with contrast, or other procedures. If lactic acidosis happens, it can lead to other health problems and can be deadly. Kidney tests may be done while taking this drug. Do not take this drug if you have a very bad infection, low oxygen, or a lot of fluid loss (dehydration). Call your doctor right away if you have signs of too much lactic acid in the blood (lactic acidosis) like fast breathing, fast or slow heartbeat, a heartbeat that does not feel normal, very bad upsetstomach or throwing up, feeling very sleepy, shortness of breath, feeling very tired or weak, very bad dizziness, feeling cold, or muscle pain or cramps. What is this drug used for? It is used to lower blood sugar in patients with high blood sugar (diabetes), treatment for PCOS, What do I need to tell my doctor BEFORE I take this drug? If you are allergic to this drug; any part of this drug; or any other drugs, foods, or substances. Tell your doctor about the allergy and what signs you had. If you have any of these health problems: Acidic blood problem, kidney disease, or liver disease. If you have had a recent heart attack or stroke. If you are not able to eat or drink like normal, including before certain procedures or surgery. If you are having an exam or test with contrast or have had one within the past 48 hours, talk withyour doctor. This is not a list of all drugs or health problems that interact with this drug. Tell your doctor and pharmacist about all of your drugs (prescription or OTC, natural products, vitamins) and health problems. You must check to make sure that it is safe for you to take this drug with all of your drugs and health problems. Do not start, stop, or change the dose of any drug withoutchecking with your doctor. What are some things I need to know or do while I take this drug? All products: Tell all of your health care providers that you take this drug. This includes your doctors, nurses,pharmacists, and dentists. Talk with your doctor before you drink alcohol. Do not drive if your blood sugar has been low. There is a greater chance of you having a crash. Check your blood sugar as you have been told by your doctor. Have blood work checked as you have been told by the doctor. Talk with the doctor. It may be harder to control blood sugar during times of stress such as fever, infection, injury, orsurgery. A change in physical activity, exercise, or diet may also affect blood sugar. Follow the diet and workout plan that your doctor told you about. If diarrhea happens or you are throwing up, call your doctor. You will need to drink more fluids tokeep from losing too much fluid. Be careful in hot weather or while being active. Drink lots of fluids to stop fluid loss. Long-term treatment with metformin may lead to low vitamin B-12 levels. If you have ever had low vitamin B-12 levels, talk with your doctor. If you are 65 or older, use this drug with care. You could have more side effects. There is a chance of in people of childbearing age who have not been ovulating. If you want to avoid , use control while taking this drug. Tell your doctor if you are , plan on getting , or are breast- feeding. You will need to talk about the benefits and risks to you and the baby. What are some side effects that I need to call my doctor about right away? WARNING/CAUTION: Even though it may be rare, some people may have very bad and sometimes deadly side effects when taking a drug. Tell your doctor or get medical help right away if you have any of thefollowing signs or symptoms that may be related to a very bad side effect: Signs of an allergic reaction, like rash; hives; itching; red, swollen, blistered, or peeling skin with or without fever; wheezing; tightness in the chest or throat; trouble breathing, swallowing, ortalking; unusual hoarseness; or swelling of the mouth, face, lips, tongue, or throat. It is common to have stomach problems like upset stomach, throwing up, or diarrhea when you start taking this drug. If you have stomach problems later during treatment, call your doctor right away. This may be a sign of an acid health problem in the blood (lactic acidosis). Low blood sugar can happen. The chance may be raised when this drug is used with other drugs for diabetes. Signs may be dizziness, headache, feeling sleepy or weak, shaking, fast heartbeat, confusion, hunger, or sweating. Call your doctor right away if you have any of these signs. Follow what you have been told to do for low blood sugar. This may include taking glucose tablets, liquid glucose, or some fruit juices. What are some other side effects of this drug? All drugs may cause side effects. However, many people have no side effects or only have minor sideeffects. Call your doctor or get medical help if any of these side effects or any other side effects bother you or do not go away: Stomach pain or heartburn. Gas. Diarrhea, upset stomach, or throwing up. Feeling tired or weak. Headache. These are not all of the side effects that may occur. If you have questions about side effects, call your doctor. Call your doctor for medical advice about side effects. You may report side effects to your national health agency. How is this drug best taken? Use this drug as ordered by your doctor. Read all information given to you. Follow all instructionsclosely. All products: Take with meals. Keep taking this drug as you have been told by your doctor or other health care provider, even if you feel well. Polycystic Ovary Syndrome Women with polycystic ovary syndrome (PCOS) have a hormonal imbalance that interferes with normal reproductive processes. PCOS usually starts at puberty and is associated with irregular periods and other hormone related symptoms. The most concerning issues with PCOS are the increase of infertility,the risk of developing type 2 diabetes and cardiovascular disease, and the higher risk of developing endometrial (uterine) cancer at an early age. What are the symptoms of PCOS? Irregular menstrual periods, or no menstrual periods at all Decreased frequency or complete lack of ovulation, resulting in problems with infertility Obesity, often specifically characterized by weight gain in the upper body and abdomen Oily skin and hair and persistent acne into adulthood Abnormal hair growth, in a masculine distribution (facial hair, heavy hair growth on arms, chest, and abdomen) Tendency to develop type 2 diabetes What causes PCOS syndrome? Research is ongoing to uncover a cause for PCOS. There is evidence that shows a link between certain forms of PCOS and family history, suggesting a genetic basis for the condition. How is PCOS diagnosed? Most cases can be diagnosed with a thorough evaluation of your medical history and symptoms, as well as a physical exam. A blood test may be required to measure the levels of various hormones. In some cases, an ultrasound of the ovaries may help with diagnosis. How is PCOS treated? Although PCOS can be treated with medications, treatment is often highly dependent on your goals and your symptoms. If you want to become , you may need the assistance of oral or injected fertility medications. If you do not want to become , you may consider control pills to prevent pregnancyand regulate periods. Other symptoms such as unwanted hair growth, acne, obesity, and diabetes should be managed by specialists in those areas. Specific treatment options should be discussed with your physician. How can PCOS be prevented? There is no known prevention for PCOS. However, through proper nutrition and weight management manywomen with polycystic ovary syndrome can avoid developing diabetes and cardiovascular problems. How can I improve my chances of conceiving if I have PCOS? While specific fertility issues should be addressed with your physician, there are some general healthcare guidelines that may improve your chances of becoming : Folic acid (400 mcg. supplement a day, with a diet rich in folic acid, including leafy green vegetables, dried beans, liver, and citrus fruits) Limit caffeine (Fewer than two caffeinated beverages per day) Eat well (Healthy well-balanced diet) Exercise and maintain a healthy weight (Maintain a normal exercise routine, 20 to 30 minutes per day, 4 to 5 times per week.) This information is provided by your physician and the [facility] and the[facility] [email or web address]. This information has not been designed to replace a physician's medical assessment and medical judgment. Copyright 1994- 2012 [facility]. All rights reserved This information is provided by the [facility] and is not intended to replace the medical advice of your doctor or health care provider. Please consult your health care provider for advice about a specific medical condition. For additional health information, please contact the [facility] at the [facility] or toll-free extension [phone]. If you prefer, you may visit [email or web address] or [email or web address]. This document was last reviewed on: 2009 index#[id number] documented in this encounterPeoples [facility]05-16-[facility] History of Present illness Narrative* Maria R Arora APRN.CNP - 10/12/2022 8:20 AM EDT Registered Nurse Renal offered: Patient declinesGlen Mccarty is a 37 year old who presents for an annual gynecologic exam without complaints. Has PCOS. Menses: cycles every 1-3 months and 7 days of flow. Have always been irregular. Contraception: none HPV vaccine: No Last Pap: 01/2017 normal HPV: unknown History of abnormal pap: No Last mammogram: never Sexually active: never History of ovarian cyst: No History of PCOS: Yes OB History T0 L0 SAB0 IAB0 Ectopic0 Multiple0 Live Births0 Sex Therapist History LMP: 03/08/2016 (Exact Date), Having periods Age at Menarche: Age at First : Age at Menopause: Sex Therapist History Comments: Sexual Activity: Not Currently; No partner data on record Contraception: No contraception data on record PAST MEDICAL HISTORY Diagnosis Date Adjustment disorder with depressed mood Psychiatry Dr Pastor Burgess Irregular menstrual cycle PCOS (polycystic ovarian syndrome) PAST SURGICAL HISTORY Procedure Laterality Date NONE FAMILY HISTORY Problem Relation Age of Onset None Mother None Father SOCIAL HISTORY Social History Tobacco Use Smoking status: Never Smokeless tobacco: Never Substance Use Topics Alcohol use: No Drug use: No REVIEW OF SYSTEMS Abdomen: No abdominal pain, nausea, vomiting, diarrhea, or constipation. No bloating, early satiety, indigestion, or increased flatulence. Bladder: No dysuria, gross hematuria, urinary frequency, urinary urgency, or incontinence. Breast: No breast lumps, nipple d/c, overlying skin changes, redness or skin retraction. Allergies and current medication updated:Yes EXAM: BP 132/84 Wt 194 lb 3.2 oz (88.1kg) LMP 09/26/2022 GENERAL: pleasant, female in no apparent distress HEENT: Normocephalic, atraumatic, mucus membranes moist, and no lesions NECK: Supple, full range of motion, no adenopathy, and thyroid normal DERMATOLOGY: Normal, without lesions, non-icteric, and hirsutism to face, breasts and abdomen BREAST: soft, non-tender, symmetric, no dominant mass, normal nipple-areolar complex, no lymphadenopathy, and no nipple discharge CHEST: Normal inspiratory effort ABDOMEN: soft, non-tender, and no masses PELVIC: external genitalia normal, normal Bartholin's glands, urethra, Triana's glands, no vulvar lesions, no cervical lesions, good vaginal support, physiologic discharge present, normal appearing perineal body and perianal region. Narrow introitus - yellow speculum used BIMANUAL: uterus normal size, shape and consistency, no adnexal masses, and non- tender. Single finger bimanual RECTOVAGINAL: deferred. NEURO: alert and oriented x3,exam grossly non-focal EXTREMITIES: normal ASSESSMENT/PLAN: 1) Health maintenance: Pap done with HPV. Nutrition, exercise and routine health maintenance exams reviewed. HPV vaccine: discussed, not interested 2. PCOS (polycystic ovarian syndrome) - ICD9: 256.4, ICD10: E28.2 - irregular menses - METFORMIN 500 MG TABLET 3. Weight gain due to medication - ICD9: 783.9, E947.9, ICD10: R63.5, T50.905A - anti-psychotic, states has gained a lot of weight since starting - METFORMIN 500 MG TABLET 4. Class 1 obesity with serious comorbidity and body mass index (BMI) of 32.0 to 32.9 in adult, unspecified obesity type - ICD9: 278.00, V85.32, ICD10: E66.9, Z68.32 Weight increasing - METFORMIN 500 MG TABLET 5) Contraception: none. Contraceptive options reviewed and information provided. Abstinence. Has hypertension. 6) STD screening: Declined STD check. 7) Follow up one year or sooner as needed Maria R Arora APRN.[facility] documented in [facility] encounter[facility]09-[facility] History of Past illness Narrative* Problem Noted Date Resolved Date Depressive disorder, not elsewhere classified 12/02/2015 documented as of this encounter (statuses as of 10/12/2022) [facility] of Past illness Narrative* Problem Noted Date Diagnosed Date Resolved Date Depressive disorder, not elsewhere classified 02/09/20 08 12/02/2015 documented as of this encounter (statuses as of 04/14/2023) [facility] noteNo assessment information availableWFirelands [facility] Work Phone: Evaluation note* Diagnosis Encounter for gynecological examination (general) (routine) without abnormal findings- Primary PCOS (polycystic ovarian syndrome) Polycystic ovaries Weight gain due to medication Other symptoms concerning nutrition, metabolism, and development Class 1 obesity with serious comorbidity and body mass index (BMI) of 32.0 to 32.9 in adult, unspecified obesity type Screening for cervical cancer Screening for malignant neoplasm of the cervix Special screening examination for human papillomavirus (HPV) documented in this encounter [facility]* Diagnosis PCOS (polycystic ovarian syndrome)- Primary Polycystic ovaries Irregular menstrual cycle Encounter for BCP ( control pills) initial prescription General counseling for prescription of oral contraceptives Weight gain due to medication Other symptoms concerning nutrition, metabolism, and development documented in this encounter [facility]* Diagnosis Onset Date Resolution Status Hypertension chronic Fecal incontinence acute Glucose intolerance (impaired glucose tolerance) acute Health care maintenance acut e Hyperlipidemia chronic Hypertension chronic Schizoaffective disorder [facility] Work Phone: Evaluation note* Diagnosis Encounter for gynecological examination with abnormal finding- Primary Routine gynecological examination PCOS (polycystic ovarian syndrome) Polycystic ovaries Urinary urgency Urgency of urination Urinary frequency Chafing Other specified disorder of skin documented in this encounter [facility] note* Diagnosis PCOS (polycystic ovarian syndrome) Polycystic ovaries Irregular menstrual cycle Encounter for BCP ( control pills) initial prescription General counseling for prescription of oral contraceptives documented in this encounter [facility] for referral (narrative)No reason for referral information availableWFirelands [facility] Work Phone: Family History No Family History Records Found Relationship Condition Age at Onset Recorded Date/T nimo father Hypertension Unknown sister Mental and behavioral problem Unknown mother Disorder of thyroid Unknown Chief Complaint and Reason for Visit Chief 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, 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 Chief Complaint MED CHECK 6 M FU Reason for Visit Hypertension Fecal incontinence Glucose intolerance (impaired glucose tolerance) Health care maintenance Hyperlipidemia Hypertension Schizoaffective disorder Chief Complaint Admit Date 6 M FU August 06, 2024 12: 58pm Reason for Visit Admit Date Borderline type 2 diabetes mellitus [facility] 2024 12:58pm Hyperlipidemia August 06, 2024 12: 58pm Hypertension August 06, 2024 12: 58pm Dysfunctional uterine bleeding July 12:58pm Summary Purpose Advance Directives No Advanced Directives Records FoundNo Advanced Directives Records FoundNo Advanced Directives Records Found Additional Source Comments Goals (unrecognized section and content) Goals may be documented in a n alternate sectionGoals may be documented in an alternate sectionGoals may be documented in an alternate sectionGoals may be documented in an alternate sectionGoals may be documented in an alternate section Care Teams (unrecognized sec tion and content) Team Status: Active Member Role Status Dates Dr. Suzy Koehler MD Family Provider Active Dr. Suzy Koehler MD Primary Care Provider Active Team Status: Inactive Member Role Status Dates Dr. Suzy Koelher MD Primary Care Provider Active Dr. Pastor Burgess MD Attending Provider, Referring Provider Active Manager Work Relationship Specialty Start Date End Date Suzy Koehler MD PCP - General Internal Medicine 01/31/18 Team Status: Inactive Member Role Status Dates Dr. Suzy Koehler MD Primary Care Provider Active NATACHA QURESHI Attending Provider Active Manager Work Relationship Specialty Start Date End Date Suzy Koehler MD PCP - General Internal Medicine 01/31/18 Team Status: Inactive Member Role Status Dates Dr. Suzy Koehler MD Primary Care Zandra sutton, Attending Provider, Referring Provider Active Team Status: Inactive Member Role Status Dates Dr. Suzy Koehler MD Primary Care Provider, Refer ring Provider Active Tej BLOUNT, PA Attending Provider Active Team Status: Inactive Member Role Status Dates Dr. Suzy Koehler MD Primary Care Provider, Atten ding Provider Active Manager Work Relationship Specialty Start Date End Date Suzy Koehler MD PCP - General Internal Medicine 01/31/18 Manager Work Relationship Specialty Start Date End Date Suzy Koehler MD PCP - General Internal Medicine 01/31/18 Manager Work Relationship Specialty Start Date End Date Suzy Koehler MD PCP - General Internal Medicine 01/31/18 Team Status: Inactive Member Role Status Dates Dr. Suzy Koehler MD Primary Care Provider Active Start: July 27, 2024 End: July 27, 2024 Dr. Suzy Koehler MD Attending Provider Active Start: July 27, 2024 End: July 27, 2024 Dr. Suzy Koehler MD Referring Provider Active Start: July 27, 2024 End: July 27, 2024 Team Status: Inactive Member Role Status Dates Dr. Suzy Koehler MD Primary Care Provider Active Start: August 06, 2024 End: August 06, 2024 Dr. Suzy Koehlre MD Attending Provider Active Start: August 06, 2024 End: August 06, 2024 Dr. Suzy Koehler MD Referring Provider Active Start: August 06, 2024 End: August 06, 2024 Source Comments (unrecognize d section and content) In the event this informatio n is protected by the Federal Confidentiality of Alcohol and Drug Abuse Patient Records regulations: The Federal rules restrict any use of the information to criminally investigate or prosecute any alcohol or drug abuse patient.[facility] HospitalIn the event this information is protected by the Federal Confidentiality of Alcohol and Drug Abuse Patient Records regulations: The Federal rules restrict any use of the information to criminally investigate or prosecute any alcohol or drug abuse patient.[facility] HospitalIn the event this information is protected by the Federal Confidentiality of Alcohol and Drug Abuse Patient Records regulations: The Federal rules restrict any use of the information to criminally investigate or prosecute any alcohol or drug abuse patient.[facility] HospitalIn the event this information is protected by the Federal Confidentiality of Alcohol and Drug Abuse Patient Records regulations: The Federal rules restrict any use of the information to criminally investigate or prosecute any alcohol or drug abuse patient.[facility] HospitalIn the event this information is protected by the Federal Confidentiality of Alcohol and Drug Abuse Patient Records regulations: The Federal rules restrict any use of the information to criminally investigate or prosecute any alcohol or drug abuse patient.[facility] Reason for Visit (unrecogniz ed section and content) Reason Comments Yearly check Reason Comments Medication Follow-up Reason Comments Well Woman Reason Comments Refill Request Reason Onset Date Comments Refill Request 04/30/2024 INFORMATION SOURCE (unrecogn ized section and content) DATE CREATED AUTHOR 03/19/2023 [facility] DATE CREATED AUTHOR AUTHOR'S ORGANIZ ATION 09/17/2024 [facility] DATE CREATED AUTHOR AUTHOR'S ORGANIZ ATION 10/26/2024 [facility] FOR RECORDS PERTAINING TO PATIENTS WHO ARE OR HAVE BEEN ENROLLED IN A CHEMICAL DEPENDENCY/SUBSTANCEABUSE PROGRAM, SOME INFORMATION MAY BE OMITTED. This clinical summary was aggregated from multiple sources. Caution should be exercised in using it in the provision of clinical care. This summary normalizes information from multiple sources, and as a consequence, information in this document may materially change the coding, format and clinical context of patient data. In addition, data may be omitted in some cases. CLINICAL DECISIONS SHOULD BE BASED ON THE PRIMARY CLINICAL RECORDS. [facility]. provides no warranty or guarantee of the accuracy or completeness of information in this document.
== END | disposition home or self-care (01) ==
PROVIDERS: PCP Internal Medicine; Referring Provider Internal Medicine; Visit Provider Internal Medicine
DX: I10 Essential (primary) hypertension (principal); E78.5 Hyperlipidemia, unspecified; R73.03 Prediabetes
CPT/HCPCS: 36415; 80053; 80061; 82607; 83036; 85025

== ENCOUNTER → 2025-04-19 | Outpatient (CLI) | payer MEDICARE, MEDICAID, SELFPAY ==
[2025-04-19 10:27] LABS: Hematocrit 46.3 % (37-47); Hemoglobin 15.3 g/dL (12.0-15.0); Mean Corp Hgb Conc 33.0 g/dL (32-36); Mean Corpuscular Volume 89.4 fL (81-99); Mean Platelet Vol. 9.6 fl (6.2-12.0); Platelet Count 401 K/mm3 (150-450); RBC Distribution Width CV 12.1 % (11.6-14.6); RBC Distribution Width SD 39.8 fl (35.1-43.9); Red Blood Count 5.18 M/mm3 (4.2-5.4); White Blood Count 8.2 K/mm3 (4.4-11.0)
[2025-04-19 11:56] LABS: AST(SGOT) 30 U/L (<=31); Alanine Aminotransfer ALT/SGPT 69 U/L (<=34); Albumin, Serum 4.5 g/dL (3.5-5.0); Alkaline Phosphatase 61 U/L (35-104); Anion Gap 12 (5-15); BUN 18 mg/dL (4-19); BUN/Creat Ratio 19.8 RATIO (10-20); Calcium,Total 9.5 mg/dL (7.6-11.0); Carbon Dioxide 25.8 mmol/L (21.0-32.0); Chloride 104 mmol/L (98-108); Cholesterol 157 mg/dL (<=200); Globulin 2.2 g/dL (2.2-4.2); Glucose 97 mg/dL (70-99); Low Density Lipoprotein Calc. 83 mg/dL; Potassium 4.0 mmol/L (3.3-5.1); Triglycerides 177 mg/dL; Very Low Density Lipoprotein 35 mg/dL (5-40); cholesterol:hdl ratio screen 3.60
== END | disposition home or self-care (01) ==
LOC: MTLAB 08:53
PROVIDERS: PCP Internal Medicine; Referring Provider Physician Assistant; Visit Provider Physician Assistant
DX: E66.9 Obesity, unspecified (principal); I10 Essential (primary) hypertension; Z79.899 Other long term (current) drug therapy
CPT/HCPCS: 36415; 80053; 80061; 83036; 83525; 85027